=== PATIENT | female | born 1935 | race Caucasian/White ===

== ENCOUNTER → 2023-07-24 07:35 | Outpatient (REF) | payer OTHER, SELFPAY | LOC: RAD 07:35 | PROVIDERS: ATTENDING PHYSICIAN Nuclear Medicine Nuclear Cardiology; FAMILY PHYSICIAN Family Medicine | DX: I77.9 Disorder of arteries and arterioles, unspecified (principal) | CPT/HCPCS: 93880 ==

== ENCOUNTER → 2023-07-27 15:32 | Outpatient (REF) | payer OTHER, SELFPAY | LOC: PAVMRI 15:32 | PROVIDERS: ATTENDING PHYSICIAN Physical Medicine & Rehabilitation; FAMILY PHYSICIAN Family Medicine | DX: M25.511 Pain in right shoulder (principal) | CPT/HCPCS: 73221 ==

== ENCOUNTER 2023-09-10 11:58 | Emergency (ER) | payer OTHER, SELFPAY ==
[2023-09-10 12:03] VITALS: BP 129/82
--- NOTE | 2023-09-10 12:09 | ED.GENMED ---
History of Present Illness
General
Chief Complaint: Chest Pain
Source: patient
Exam Limitations: none
Time Seen by Provider: 09/10/23 12:07
Nursing documentation reviewed up to this point in time: agreed with
Travel History
Have you had any contact with someone who has COVID-19?: No
Do you have any symptoms of coronavirus? Fever > 100 degrees, chills, cough, shortness of breath, sore throat, loss of taste or smell, muscle aches, or headache?: No
History of Present Illness
History of Present Illness:
88-year-old female with history of HLD, appendectomy, tonsillectomy presents stating she was awakened at 3 AM this morning with pain across her upper chest, she is not sure how long it lasted but states she laid there for a little while and then
finally drifted back to sleep. When she awakened the chest pain was gone and she has had none since. She denies any sweating, shortness of breath, nausea or weakness.
Past History
Past History
ED Past Medical History: Hypercholesterolemia and Other (Osteoporosis with Chronic right upper back and neck problems which Dr. Millan has told her is from compression fractures.)
ED Past Surgical History: Appendectomy and Tonsilectomy
Social History
Tobacco: Non-smoker
Personal:
Living: with family
Family History
Family History: Other (Noncontributory)
Review of Systems
Review of Systems
Allergies reviewed?: Yes
All Other Systems: ROS reviewed and negative except as documented in HPI and ROS
Constitutional: Denies fever or fatigue
Respiratory: Denies trouble breathing
Cardiac: Reports chest pain; Denies diaphoresis, palpitations or syncope
ABD/GI: Denies abdominal pain, nausea, vomiting, diarrhea, constipated or anorexia
: Denies dysuria, frequency or difficulty voiding
Musculoskeletal: Reports no symptoms
Skin: Reports no symptoms
Neurological: Reports no symptoms
Phy Exam
Physical Exam
Physical Exam:
GENERAL: No acute distress. A&Ox3.
CONSTITUTIONAL: Afebrile.
EYES: ClearL, conjunctivae normal
ENMT: moist mucus membranes, Pharynx nl
RESPIRATORY: Regular respirations, nonlabored, lungs clear.
CARDIOVASCULAR: Regular rate and rhythm, no murmurs, no rubs.
GI: Soft, nontender, normal BS
MUSCULOSKELETAL: Moves with ease. Well perfused.
SKIN: Warm, dry, pink
PSYCH: Normal mood and affect. Well kept, interactive and appropriate
NEUROLOGIC: Awake, alert and oriented. No focal neurological deficits
Scores
Heart Score for Chest Pain Patients
STEMI patient?: Not applicable
Course
Orders/Labs/Results
Orders:
Orders
09/10/23 12:02
Electrocardiogram (*1) Urgent
Reason for Study: Chest Pain
EKG- Treatment ONCE
09/10/23 12:18
CR Chest - 2 Views Urgent
Comment:
Reason For Exam: Chest pain
09/10/23 12:24
Complete Blood Count/With Diff Urgent
Comprehensive Metabolic Panel Urgent
Troponin I Urgent
09/10/23 14:58
CT Chest With Iv Contrast Urgent
Comment:
Reason For Exam: chest pain, radfiology reports a mass
Abnormal Lab Results
09/10/23
12:24
Absolute Monos (auto) 0.7 H 10^3/uL
(0.1-0.6)
Monocytes % 9.4 H %
(1.7-9.3)
Sodium 133 L mmol/L
(135-145)
Glucose 102 H mg/dl
(70-99)
09/10/23 12:24
09/10/23 12:24
Vital Signs
Initial and Last Documented VS:
Initial Vital Signs
Temp Pulse Resp BP Pulse Ox
97.6 F 107 18 129/82 98
09/10/23 12:03 09/10/23 12:03 09/10/23 12:03 09/10/23 12:03 09/10/23 12:03
Last Documented Vital Signs
Temp Pulse Resp BP Pulse Ox
97.6 F 92 18 123/72 98
09/10/23 12:03 09/10/23 16:02 09/10/23 16:02 09/10/23 16:02 09/10/23 16:02
MDM/Problems Addressed
Differential Diagnosis Includes:
OK, angina
MDM/Problems Addressed:
88-year-old female with history of HLD, appendectomy, tonsillectomy presents stating she was awakened at 3 AM this morning with pain across her upper chest, she is not sure how long it lasted but states she laid there for a little while and then
finally drifted back to sleep. When she awakened the chest pain was gone and she has had none since. She denies any sweating, shortness of breath, nausea or weakness.
EKG: NSR, RBBB
09/10/2023 1346 PM
CBC normal
CMP normal
CXR unremarkable
No CP since arrival
Referred to the [facility] cardiac hotline for f/u
Received call from Radiology the patient has a mass in her chest and he recommends a CT scan
09/10/2023 1655 PM
IMPRESSION:
1. � 4.5 cm RIGHT LOWER LOBE LUNG CANCER.
2. � Small solid subcentimeter pulmonary nodules in the lower lobes of both lungs suspicious for pulmonary metastases. Infectious or inflammatory pulmonary nodules are an alternative diagnostic possibility.
3. � Mildly enlarged right hilar lymph nodes suspicious for corine metastatic disease.
4. � Moderate amount of subpleural scarring in both lung apices.
5. � Mild paraseptal emphysema in the upper lobes.
6. � Severe calcific atherosclerotic plaque in the coronary arteries and aorta.
7. � Multilevel vertebral body endplate osteoporotic insufficiency fractures in the thoracic and lumbar spine.
8. � Multiple small thyroid nodules.
Copy of report given to pt. with daughter and son in room. All questions answered.
Referred to Oncology.
*Critical Care Note
Total Time (30-74mins, 75-104mins- exclusive of procedures): Not Applicable
ED Attending Note
-
Portions of this chart may have been created with voice recognition software.� Occasional wrong word or��sound alike� substitutions may have occurred due to the inherent limitations of voice recognition software.
Discharge Plan
Departure
Patient Disposition: Home (Routine Discharge)
Date of Disposition: 09/10/23
Time of Disposition: 16:57
Patient with high blood pressure during this ER visit?: No
Condition: Good
Discharge Problem:
Atypical chest pain, Lung cancer
Instructions: Lung Cancer (DC), Chest Pain DCA Follow Up
Prescriptions:
No Action
multivitamin [Daily Multiple] 1 EACH tablet
1 ea PO DAILY
alendronate 70 MG tablet
70 mg PO WEEKLY
aspirin 81 MG tablet,delayed release (DR/EC)
81 mg PO DAILY
tramadol 50 MG tablet
50 mg PO PRN PRN (Reason: pain)
lorazepam 0.5 MG tablet
0.5 mg PO BIDPRN PRN (Reason: anxiety)
cholecalciferol (vitamin D3) [Vitamin D3] 1,000 UNIT capsule
1,000 unit PO DAILY
Referrals:
Hema Hernandez DO [Active] - Keep scheduled appt
Joi Ayala MD [Active] - Call in 1-3 days for appt
Joyce Huntley MD [Family Provider] -
Activity Restrictions/Additional Instructions:
As we discussed, there is no sign of a heart attack in your workup here today.
Someone from your cardiology group will contact you within the next 2 days for follow up appointment for a more thorough cardiac evaluation.
Your CT scan shows
Interventions
Interventions:
*Risk Screen - Suicide Last Done: 09/10/23 12:21
*General Assessment Last Done: 09/10/23 12:21
*Neglect/Abuse Screening Last Done: 09/10/23 12:21
ED- Fall Risk Assessment Last Done: 09/10/23 12:21
*ED COVID-19 Vaccine History Last Done: 09/10/23 12:21
*Nursing Disposition Last Done: 09/10/23 14:29
ED- Cardiac Assessment Last Done: 09/10/23 12:21
[2023-09-10 12:42] LABS: % Basophils 0.6 % (0-2); % Eosinophils 0.1 % (0-6); % Immature Granulocytes 0.5 % (0-0.5); % Lymphocytes 21.4 % (20.5-51.1); % Monocytes 9.4 % (1.7-9.3); Absolute Basophils 0.1 10^3/uL (0-0.2); Absolute Lymphocytes 1.7 10^3/uL (1.2-3.4); Absolute Monocytes 0.7 10^3/uL (0.1-0.6); Absolute Neutrophils 5.4 10^3/uL (1.4-6.5); Hematocrit 45.7 % (37.0-47.0); Hemoglobin 15.5 g/dL (12.0-16.0); Mean Corp Hgb Conc. 33.9 g/dL (33.0-37.0); Mean Corpuscular Hgb 29.2 pg (27.0-31.0); Mean Corpuscular Volume 86.2 fL (81.0-99.0); Mean Platelet Volume 9.6 fL (7.4-10.4); Nucleated Red Blood Cells % 0 %; Platelet Count 274 10^3/uL (130-400); Red Cell Dist. Width 14.3 % (11.5-14.5); White Blood Cell Count 7.9 10^3/uL (4.8-10.8)
[2023-09-10 12:50] LABS: ALT (SGPT) 13 U/L (0-35); AST (SGOT) 26 U/L (14-36); Albumin 4.1 g/dl (3.5-5.0); Alkaline Phosphatase 86 U/L (38-126); Blood Urea Nitrogen 14 mg/dl (7-17); Calcium 9.3 mg/dl (8.4-10.2); Carbon Dioxide 29 mmol/L (22-30); Chloride 101 mmol/L (98-107); Glucose 102 mg/dl (70-99); Potassium 4.2 mmol/L (3.5-5.1); Sodium 133 mmol/L (135-145); Total Bilirubin 0.5 mg/dl (0.2-1.3); Total Protein 7.2 g/dl (6.3-8.2); eGFR > 60.00
[2023-09-10 13:02] LABS: Troponin I < 0.012 ng/ml
[2023-09-10 13:34] VITALS: BP 123/71
[2023-09-10 14:28] VITALS: BP 125/74
[2023-09-10 16:02] VITALS: BP 123/72
[2023-09-10 17:47] VITALS: BP 118/71
== END 2023-09-10 17:48 | disposition home or self-care (01) ==
LOC: EMR 11:58
PROVIDERS: Registered Nurse; EMERGENCY PHYSICIAN Student in an Organized Health Care Education/Training Program; FAMILY PHYSICIAN Family Medicine
DX: R07.89 Other chest pain (principal); C34.31 Malignant neoplasm of lower lobe, right bronchus or lung; E78.00 Pure hypercholesterolemia, unspecified
CPT/HCPCS: 99285; 71046; 71260; 80053; 84484; 85025; 93005; Q9967

== ENCOUNTER → 2023-09-19 12:58 | Outpatient (REF) | payer OTHER, SELFPAY | LOC: DHCBS HW 12:58 | PROVIDERS: ATTENDING PHYSICIAN Nuclear Medicine Nuclear Cardiology; FAMILY PHYSICIAN Family Medicine | DX: I45.10 Unspecified right bundle-branch block (principal); I34.0 Nonrheumatic mitral (valve) insufficiency | CPT/HCPCS: 93306 ==

== ENCOUNTER → 2023-10-04 10:11 | Outpatient (REF) | payer OTHER, SELFPAY | LOC: PET 10:11 | PROVIDERS: ATTENDING PHYSICIAN Internal Medicine Hematology & Oncology | DX: C34.31 Malignant neoplasm of lower lobe, right bronchus or lung (principal) | CPT/HCPCS: 78815; A9552 ==

== ENCOUNTER 2023-10-10 06:20 | Day surgery (SDC) | payer OTHER, SELFPAY ==
[2023-10-04 12:36] VITALS: BMI 17.8
[2023-10-04 13:07] LABS: Hematocrit 46.7 % (37.0-47.0); Hemoglobin 15.4 g/dL (12.0-16.0); Mean Corpuscular Hgb 29.2 pg (27.0-31.0); Mean Corpuscular Volume 88.6 fL (81.0-99.0); Mean Platelet Volume 10.3 fL (7.4-10.4); Platelet Count 268 10^3/uL (130-400); Red Blood Cell Count 5.27 10^6/uL (4.20-5.40); Red Cell Dist. Width 14.2 % (11.5-14.5); White Blood Cell Count 7.6 10^3/uL (4.8-10.8)
[2023-10-04 13:17] LABS: INR 0.95; PT 12.7 Sec (11.4-14.6)
[2023-10-04 13:18] LABS: APTT 33.2 Sec (23.4-35.0)
[2023-10-04 13:27] LABS: Blood Urea Nitrogen 13 mg/dl (7-17); Carbon Dioxide 27 mmol/L (22-30); Chloride 96 mmol/L (98-107); Estimated Creatinine Clearance 36 ml/min; Glucose 157 mg/dl (70-99); Potassium 4.3 mmol/L (3.5-5.1); Sodium 131 mmol/L (135-145); eGFR > 60.00
[2023-10-10] VITALS (13 sets, daily range): BP systolic 90–122; BP diastolic 7–79; BMI 16.4
== END 2023-10-10 14:51 | disposition home or self-care (01) ==
LOC: SDS 06:20
PROVIDERS: ATTENDING PHYSICIAN Internal Medicine Critical Care Medicine; FAMILY PHYSICIAN Family Medicine; OTHER PHYSICIAN Nuclear Medicine Nuclear Cardiology
DX: C34.31 Malignant neoplasm of lower lobe, right bronchus or lung (principal); R93.89 Abnormal findings on diagnostic imaging of other specified body structures; J98.4 Other disorders of lung; J43.9 Emphysema, unspecified
CPT/HCPCS: 31629; 31628; 31627; 31624; 31623; 88172; 88173; 88305; 36415; 71045; 76000; 80048; 81459; 85027; 85610; 85730; 87015; 87070; 87102; 87116; 87205; 88112; 88177; 88333; 88334; 94640; C1887

== ENCOUNTER → 2023-10-12 14:20 | Outpatient (REF) | payer OTHER, SELFPAY | LOC: PAVMRI 14:20 | PROVIDERS: ATTENDING PHYSICIAN Internal Medicine Hematology & Oncology; FAMILY PHYSICIAN Family Medicine | DX: C34.31 Malignant neoplasm of lower lobe, right bronchus or lung (principal) | CPT/HCPCS: 70553 ==

== ENCOUNTER → 2023-10-30 10:20 | Outpatient (REF) | payer OTHER, SELFPAY ==
[2023-10-30 10:39] VITALS: BP 134/90; BP_SYST 98
[2023-10-30] MEDS: VANCOCIN 200 IV (10:44)
[2023-10-30 12:25] VITALS: BP 145/83; BP_SYST 96
== END ==
LOC: RADI 10:20
PROVIDERS: ATTENDING PHYSICIAN Internal Medicine Hematology & Oncology
DX: C34.31 Malignant neoplasm of lower lobe, right bronchus or lung (principal)
CPT/HCPCS: 36561; 76937; 77001; 99152; 99153; C1788

== ENCOUNTER → 2024-01-22 12:24 | Outpatient (REF) | payer OTHER, SELFPAY | LOC: HWRAD 12:24 | PROVIDERS: ATTENDING PHYSICIAN Internal Medicine Hematology & Oncology; FAMILY PHYSICIAN Family Medicine | DX: C34.31 Malignant neoplasm of lower lobe, right bronchus or lung (principal) | CPT/HCPCS: 71260; Q9967 ==

== ENCOUNTER → 2024-03-26 13:02 | Outpatient (REF) | payer OTHER, SELFPAY | LOC: HWRCS 13:02 | PROVIDERS: ATTENDING PHYSICIAN Nuclear Medicine Nuclear Cardiology; FAMILY PHYSICIAN Family Medicine | DX: I45.10 Unspecified right bundle-branch block (principal); R94.31 Abnormal electrocardiogram [ECG] [EKG]; I34.0 Nonrheumatic mitral (valve) insufficiency | CPT/HCPCS: 93306 ==

== ENCOUNTER 2024-04-04 19:42 | Emergency (ER) | payer OTHER, SELFPAY ==
[2024-04-04 19:43] VITALS: BMI 17.7
[2024-04-04 19:59] VITALS: BP 152/95
[2024-04-04 23:04] VITALS: BP 133/92
[2024-04-04 23:10] LABS: % Basophils 0.5 % (0-2); % Eosinophils 0.1 % (0-6); % Immature Granulocytes 0.4 % (0-0.5); % Lymphocytes 8.7 % (20.5-51.1); % Monocytes 10.4 % (1.7-9.3); % Neutrophils 79.9 % (42.2-75.2); Absolute Lymphocytes 0.6 10^3/uL (1.2-3.4); Absolute Monocytes 0.8 10^3/uL (0.1-0.6); Absolute Neutrophils 5.8 10^3/uL (1.4-6.5); Hematocrit 37.4 % (37.0-47.0); Hemoglobin 12.8 g/dL (12.0-16.0); Mean Corp Hgb Conc. 34.2 g/dL (33.0-37.0); Mean Corpuscular Hgb 28.5 pg (27.0-31.0); Mean Corpuscular Volume 83.3 fL (81.0-99.0); Nucleated Red Blood Cells % 0 %; Platelet Count 225 10^3/uL (130-400); Red Blood Cell Count 4.49 10^6/uL (4.20-5.40); Red Cell Dist. Width 12.7 % (11.5-14.5); White Blood Cell Count 7.3 10^3/uL (4.8-10.8)
[2024-04-04] MEDS: DILAUDID 0.25 MG IV (23:10)
--- NOTE | 2024-04-04 23:16 | ED.GENMED ---
History of Present Illness
<Lucy Black PA-C - Last Filed: 04/08/24 08:03>
General
Chief Complaint: Fall
Source: patient
Exam Limitations: none
Time Seen by Provider: 04/04/24 22:18
Nursing documentation reviewed up to this point in time: agreed with
History of Present Illness
History of Present Illness:
88 y/o F with
h/o lung cancer s/p chemotherapy and now on immunetherapy q2 weeks
not known to be mets to spine
has had some compression fx previously
mechanical fall onto knees earlier today. was able to be helped back up. walked and was helped into the vehicle and back home
took a tramadol but then couldn't get out of bed, having positional back pain, worse with movement and breathing. she has not had any leg weakness/numbness, shortness of breath, chest pain, vomiting, headache head injury
she is not anticoagulated
never landed directly onto her back
no knee pain/hip pain
no head strike
Past History
<FRANCISCO J Marcial Last Filed: 04/08/24 08:03>
Past History
ED Past Medical History: Hypercholesterolemia and Other (Osteoporosis with Chronic right upper back and neck problems which Dr. Millan has told her is from compression fractures.)
ED Past Surgical History: Appendectomy and Tonsilectomy
Social History
Tobacco: Non-smoker
Personal:
Living: with family
Family History
Family History: Other (Noncontributory)
Review of Systems
<FRANCISCO J Marcial Last Filed: 04/08/24 08:03>
Review of Systems
Allergies reviewed?: Yes
All Other Systems: Not applicable
Phy Exam
<FRANCISCO J Marcial Last Filed: 04/08/24 08:03>
Physical Exam
Physical Exam:
GENERAL: Alert , in no apparent distress, very thin
HEAD: NCAT
NECK: no midline tenderness, active ROM intact, no paraspinal muscle tenderness;
EYE: pupils equal and reactive, EOMs intact.
ENT: o/p clr, mmm. no hemotympanum
CARDIAC: Regular rate and rhythm, no edema
LUNGS: crackles R base, no acute respiratory distress, no wheezes/rhonchi
ABDOMEN: Soft, without focal tenderness, no r/g, no cvat
NEUROLOGICAL: Alert and oriented, no focal neuro deficits, CN intact, 5/5 strength, sensation intact
SKIN: Warm and dry,
back: significant kyphosis; tenderness midline and laterally around t8-t12 kathleen
pain with deep breathing
MUSCULOSKELETAL: No edema, well perfused.
no hip tendenress, full nkee rom, no swelling
PSYCH: Normal and appropriate interaction.
Course
<Lucy Black PA-C - Last Filed: 04/08/24 08:03>
Orders/Labs/Results
Orders:
Orders
04/04/24 20:02
EKG [Electrocardiogram (*1)] Urgent
Reason for Study: Tachycardia
EKG- Treatment ONCE
04/04/24 22:41
HYDROmorphone [Dilaudid] 0.25 mg IV NOW STA
04/04/24 22:44
CT Chest W/o Iv Contrast Urgent
Comment:
Reason For Exam: fall, severe mid bakcpain/pleuritic pain
04/04/24 22:57
Complete Blood Count/With Diff Urgent
Comprehensive Metabolic Panel Urgent
PTT Urgent
Prothrombin Time Urgent
04/05/24 00:49
Cefdinir [Omnicef] 300 mg PO NOW STA
Doxycycline [Vibramycin] 100 mg PO NOW STA
Abnormal Lab Results
04/04/24
22:57
Absolute Lymphs (auto) 0.6 L 10^3/uL
(1.2-3.4)
Absolute Monos (auto) 0.8 H 10^3/uL
(0.1-0.6)
Neutrophils % 79.9 H %
(42.2-75.2)
Lymphocytes % 8.7 L %
(20.5-51.1)
Monocytes % 10.4 H %
(1.7-9.3)
Sodium 134 L mmol/L
(135-145)
Chloride 97 L mmol/L
(98-107)
Creatinine 0.5 L mg/dL
(0.6-1.0)
Glucose 113 H mg/dl
(70-99)
04/04/24 22:57
04/04/24 22:57
Vital Signs
Initial and Last Documented VS:
Initial Vital Signs
Temp Pulse Resp BP Pulse Ox
98.5 F 134 18 152/95 97
04/04/24 19:59 04/04/24 19:59 04/04/24 19:59 04/04/24 19:59 04/04/24 19:59
Last Documented Vital Signs
Temp Pulse Resp BP Pulse Ox
98.5 F 134 18 139/97 93
04/04/24 19:59 04/04/24 19:59 04/04/24 19:59 04/05/24 01:02 04/04/24 23:42
<Martin Diaz PA-C - Last Filed: 04/05/24 01:14>
Orders/Labs/Results
Orders:
Orders
04/04/24 20:02
EKG [Electrocardiogram (*1)] Urgent
Reason for Study: Tachycardia
EKG- Treatment ONCE
04/04/24 22:41
HYDROmorphone [Dilaudid] 0.25 mg IV NOW STA
04/04/24 22:44
CT Chest W/o Iv Contrast Urgent
Comment:
Reason For Exam: fall, severe mid bakcpain/pleuritic pain
04/04/24 22:57
Complete Blood Count/With Diff Urgent
Comprehensive Metabolic Panel Urgent
PTT Urgent
Prothrombin Time Urgent
04/05/24 00:49
Cefdinir [Omnicef] 300 mg PO NOW STA
Doxycycline [Vibramycin] 100 mg PO NOW STA
Abnormal Lab Results
04/04/24
22:57
Absolute Lymphs (auto) 0.6 L 10^3/uL
(1.2-3.4)
Absolute Monos (auto) 0.8 H 10^3/uL
(0.1-0.6)
Neutrophils % 79.9 H %
(42.2-75.2)
Lymphocytes % 8.7 L %
(20.5-51.1)
Monocytes % 10.4 H %
(1.7-9.3)
Sodium 134 L mmol/L
(135-145)
Chloride 97 L mmol/L
(98-107)
Creatinine 0.5 L mg/dL
(0.6-1.0)
Glucose 113 H mg/dl
(70-99)
04/04/24 22:57
04/04/24 22:57
Vital Signs
Initial and Last Documented VS:
Initial Vital Signs
Temp Pulse Resp BP Pulse Ox
98.5 F 134 18 152/95 97
04/04/24 19:59 04/04/24 19:59 04/04/24 19:59 04/04/24 19:59 04/04/24 19:59
Last Documented Vital Signs
Temp Pulse Resp BP Pulse Ox
98.5 F 134 18 139/97 93
04/04/24 19:59 04/04/24 19:59 04/04/24 19:59 04/05/24 01:02 04/04/24 23:42
<Lucy Black PA-C - Last Filed: 04/08/24 08:03>
MDM/Problems Addressed
Differential Diagnosis Includes:
compression fracture, contusion, strain, rib fx
MDM/Problems Addressed:
88 y/o F with h/o lung ca
here wih mid back pain after fall onto her knees
she was intially able to get up and walk but several hours later had severe pain and was unable to move or get up and 911 was called
she is not anticoagulated
no neuro complaints
pain is worse with breathing and movement
has no known mets to spine on imaging that i have reviewed
tenderness and pain to mid to lower rhotacic back
no lumbar tendneres
no cva tenderness
pain with breathing
d/w dr. jimenez, recommended ct chest
signed out to nirav pending ct.
<Martin Diaz PA-C - Last Filed: 04/05/24 01:14>
*Critical Care Note
Total Time (30-74mins, 75-104mins- exclusive of procedures): Not Applicable
<Martin Diaz PA-C - Last Filed: 04/05/24 01:14>
Update Note
Update Note:
Assumed care of patient from Lucy Black PA-C at shift change 0000. Pending CT of the chest report, plan for discharge home with pain control
CT report reviewed, no evidence for thoracic spine fracture. CT does reveal multifocal bilateral infiltrates. The patient has no fever or coughing but does report mild shortness of breath. Reviewed prior CT report, no similar findings
particularly in the left lung. Will treat this as a developing pneumonia despite the patient's lack of strong symptoms and lack of leukocytosis. This certainly could be viral or inflammatory. Will treat with cefdinir and doxycycline, recommend
repeat chest imaging in 6 weeks to assess for resolution
ED Attending Note
<Lucy Black PA-C - Last Filed: 04/08/24 08:03>
-
Portions of this chart may have been created with voice recognition software.� Occasional wrong word or��sound alike� substitutions may have occurred due to the inherent limitations of voice recognition software.
Discharge Plan
Departure
Patient Disposition: Home (Routine Discharge)
Date of Disposition: 04/05/24
Time of Disposition: 00:50
Patient with high blood pressure during this ER visit?: Yes
Discharge Problem:
Strain of thoracic back region, Bilateral pulmonary infiltrates
Instructions: Back Pain
Prescriptions:
New
cefdinir 300 mg capsule
300 mg PO BID 5 Days Qty: 10 0RF
doxycycline hyclate 100 mg capsule
100 mg PO BID 5 Days Qty: 10 0RF
No Action
alendronate 70 MG tablet
70 mg PO WEEKLY
tramadol 50 MG tablet
50 mg PO PRN PRN (Reason: pain)
lorazepam 0.5 MG tablet
0.5 mg PO BIDPRN PRN (Reason: anxiety)
atorvastatin 80 mg Tablet
80 mg PO DAILY
ibuprofen 400 mg Tablet
400 mg PO Q6H PRN (Reason: pain)
diltiazem HCl [Cartia XT] 120 mg Capsule,Extended Release 24hr
120 mg PO DAILY
gabapentin 100 mg Capsule
200 mg PO TID
Low-Dose Aspirin 81 mg Tablet
81 mg PO DAILY
Referrals:
Celia Gil PA-C [Family Provider] -
Activity Restrictions/Additional Instructions:
Please have your primary doctor or oncologist obtain a repeat CAT scan of your chest in 6 weeks to assess for resolution of the abnormality seen today
Take your prescribed morphine as well as occasional doses of Tylenol and ibuprofen to alleviate your back pain
Interventions
Interventions:
*Risk Screen - Suicide Last Done: 04/04/24 19:59
*General Assessment Last Done: 04/04/24 19:59
*Neglect/Abuse Screening Last Done: 04/04/24 19:59
*ED COVID-19 Vaccine History Last Done: 04/04/24 19:59
*Nursing Disposition Last Done: 04/05/24 01:44
ED-Musculoskeletal Assessment Last Done: 04/04/24 23:54
ED- Neurological Assessment Last Done: 04/04/24 23:54
ED-Skin Assessment Last Done: 04/04/24 23:55
Discharge Date and Time
Discharge Date/Time: 04/05/24 01:44
Print Language: BERMUDIAN
[2024-04-04 23:20] LABS: INR 1.02; PT 13.2 Sec (11.4-14.6)
[2024-04-04 23:30] LABS: ALT (SGPT) 13 U/L (0-35); AST (SGOT) 24 U/L (14-36); Albumin 3.7 g/dl (3.5-5.0); Alkaline Phosphatase 90 U/L (38-126); Blood Urea Nitrogen 17 mg/dl (7-17); Calcium 9.3 mg/dl (8.4-10.2); Carbon Dioxide 29 mmol/L (22-30); Chloride 97 mmol/L (98-107); Glucose 113 mg/dl (70-99); Potassium 4.1 mmol/L (3.5-5.1); Sodium 134 mmol/L (135-145); Total Bilirubin 0.3 mg/dl (0.2-1.3); Total Protein 6.5 g/dl (6.3-8.2); eGFR > 60.00
[2024-04-05 01:02] VITALS: BP 139/97
[2024-04-05] MEDS: OMNICEF 300 MG PO (01:02)
[2024-04-05] MEDS: VIBRAMYCIN 100 MG PO (01:02)
== END 2024-04-05 01:44 | disposition home or self-care (01) ==
LOC: EMR 19:42
PROVIDERS: Physician Assistant; EMERGENCY PHYSICIAN Emergency Medicine; FAMILY PHYSICIAN Physician Assistant Medical
DX: S29.012A Strain of muscle and tendon of back wall of thorax, initial encounter (principal); R91.8 Other nonspecific abnormal finding of lung field; W19.XXXA Unspecified fall, initial encounter; E78.00 Pure hypercholesterolemia, unspecified; M81.0 Age-related osteoporosis without current pathological fracture; Z85.118 Personal history of other malignant neoplasm of bronchus and lung; Z90.49 Acquired absence of other specified parts of digestive tract
CPT/HCPCS: 99284; 96374; 71250; 80053; 85025; 85610; 85730; 93005

== ENCOUNTER 2024-04-14 19:47 | Emergency (ER) | payer OTHER, SELFPAY ==
[2024-04-14 19:52] VITALS: BP 118/71
[2024-04-14 20:25] LABS: % Basophils 0.5 % (0-2); % Eosinophils 0.3 % (0-6); % Immature Granulocytes 0.6 % (0-0.5); % Monocytes 8.6 % (1.7-9.3); Absolute Lymphocytes 0.8 10^3/uL (1.2-3.4); Absolute Monocytes 0.5 10^3/uL (0.1-0.6); Absolute Neutrophils 4.9 10^3/uL (1.4-6.5); Hematocrit 36.3 % (37.0-47.0); Hemoglobin 12.2 g/dL (12.0-16.0); Mean Corp Hgb Conc. 33.6 g/dL (33.0-37.0); Mean Corpuscular Hgb 28.1 pg (27.0-31.0); Mean Corpuscular Volume 83.6 fL (81.0-99.0); Mean Platelet Volume 9.2 fL (7.4-10.4); Nucleated Red Blood Cells % 0 %; Platelet Count 211 10^3/uL (130-400); Red Blood Cell Count 4.34 10^6/uL (4.20-5.40); Red Cell Dist. Width 13.1 % (11.5-14.5); White Blood Cell Count 6.3 10^3/uL (4.8-10.8)
[2024-04-14 20:49] LABS: Blood Urea Nitrogen 18 mg/dl (7-17); Calcium 8.6 mg/dl (8.4-10.2); Carbon Dioxide 27 mmol/L (22-30); Chloride 100 mmol/L (98-107); Glucose 154 mg/dl (70-99); Sodium 137 mmol/L (135-145); eGFR > 60.00
[2024-04-14 20:50] LABS: Troponin I < 0.012 ng/ml
[2024-04-14 22:21] VITALS: BP 138/86
[2024-04-14 23:00] VITALS: BP 126/88
[2024-04-14 23:42] VITALS: BP 119/88; BP 144/92; PULSE 107; PULSE 82
[2024-04-14] MEDS: NSS 500 IV (23:51)
--- NOTE | 2024-04-14 23:57 | ED.GENMED ---
History of Present Illness
General
Chief Complaint: Fainting Sensation
Source: patient
Exam Limitations: none
Time Seen by Provider: 04/14/24 23:11
Nursing documentation reviewed up to this point in time: agreed with
History of Present Illness
History of Present Illness:
PT IS A 88 Y/O F
with h/o lung cancer on immunotherapy
had a fall a few weeks ago and since has had back pain
was seen here, had ct which showed no fractures but pt had evolving pneu,onia which was treated with antibiotics
she has not had any new symptoms from that
but with the back pain she has had, she has had trouble walking around/moving and hasn't been eating/drinking well
today she took a dose of morphine ER 15 mg and skelaxin 800 mg together for the first time
about an hour later she was feeding the dog and when she stood up she felt woozy; her got her into a chair but pt fully lost consciousness; they called 911 and by time they picked her up, she was awake but still drowsy but by the time she
got here she felt ok
she doesn't really remember the incident; she remembers feeding the dog
denies preceding chest pain, headache, focal weakness, vomiting, nausea, urinary sypmtoms
Past History
Past History
ED Past Medical History: Hypercholesterolemia and Other (Osteoporosis with Chronic right upper back and neck problems which Dr. Millan has told her is from compression fractures.)
ED Past Surgical History: Appendectomy and Tonsilectomy
Social History
Tobacco: Non-smoker
Personal:
Living: with family
Family History
Family History: Other (Noncontributory)
Review of Systems
Review of Systems
Allergies reviewed?: Yes
All Other Systems: Not applicable
Phy Exam
Physical Exam
Physical Exam:
GENERAL: Alert , in no apparent distress
frail, thin
EYE: pupils equal and reactive
NECK: Supple
ENT: o/p clr, dry mouth
CARDIAC: Regular rate and rhythm .no edema
LUNGS: Clear breath sounds bilaterally, no acute respiratory distress, no wheezes/rales/rhonchi
ABDOMEN: Soft, without focal tenderness, no r/g, no cvat, normal bowel sounds
NEUROLOGICAL: Alert and oriented, no focal neuro deficits
SKIN: Warm and dry, skin intact.
MUSCULOSKELETAL: No edema, well perfused. neg gian's sign
PSYCH: Normal and appropriate interaction.
Course
Orders/Labs/Results
Orders:
Orders
04/14/24 20:00
ECG [Electrocardiogram (*1)] Urgent
Reason for Study: Syncope
EKG- Treatment ONCE
04/14/24 20:18
Basic Metabolic Panel Urgent
Complete Blood Count/With Diff Urgent
Troponin I Urgent
04/14/24 23:48
Potassium Urgent
0.9% Sodium Chloride 500 ml [Nss] 500 ml IV BOLUS
Abnormal Lab Results
04/14/24
20:18
Hct 36.3 L %
(37.0-47.0)
Absolute Lymphs (auto) 0.8 L 10^3/uL
(1.2-3.4)
Immature Gran % 0.6 H %
(0-0.5)
Neutrophils % 77.0 H %
(42.2-75.2)
Lymphocytes % 13.0 L %
(20.5-51.1)
BUN 18 H mg/dl
(7-17)
Glucose 154 H mg/dl
(70-99)
04/14/24 20:18
04/15/24 00:01
Vital Signs
Initial and Last Documented VS:
Initial Vital Signs
Temp Pulse Resp BP Pulse Ox
97.6 F 76 16 118/71 98
04/14/24 19:52 04/14/24 19:52 04/14/24 19:52 04/14/24 19:52 04/14/24 19:52
Last Documented Vital Signs
Temp Pulse Resp BP Pulse Ox
97.6 F 71 15 146/98 94
04/14/24 19:52 04/15/24 01:00 04/15/24 01:00 04/15/24 01:00 04/15/24 01:00
MDM/Problems Addressed
Differential Diagnosis Includes:
medication side effect, dysyrhthmia, orthostasis
MDM/Problems Addressed:
88-year-old female with a history of lung cancer on immunotherapy and with chronic pain after a fall 2 weeks ago presents for a syncopal event today. She bent down to you with her dog's food she got back up she felt lightheaded and woozy and her
sat her down but she did ultimately pass out for a brief moment or 2. He called 911 and she was given slightly out of it for them but not shaking. She ever since being here is awake and alert. Apparently patient recently was given a
prescription for OxyContin 15 mg and Skelaxin and she took them both for the first time together today. She had taken 1 OxyContin yesterday without much difficulty but had not taken with the Skelaxin until today. It was shortly after this that the
patient had the syncopal event. She is also not been eating and drinking as well. She recently had pneumonia and was treated with antibiotics. Patient is having chronic pain in her back which is why she was prescribed the pain medication. On
exam patient appears dehydrated and weak and frail. She did tilt positive with orthostatics dropping her blood pressure 30 systolic and her heart rate increasing 20 and she was symptomatic. Patient was given IV fluids. I appreciate her blood work
to show her BUN is slightly up but otherwise there were no significant findings. Her EKG does show a sinus rhythm with marked sinus arrhythmia and a pause which she has had before.
She has no changes there
After IV fluids she was reassessed and able to get up and walk to the bathroom with minimal assistance and use the walker. She did not feel lightheaded after the liter of fluid she was given. Patient was offered observation admission to watch for
telemonitoring but she opted to go home. Will instruct the family to only use half of the pain medication and did not use the MS Contin and the Skelaxin together.
*Critical Care Note
Total Time (30-74mins, 75-104mins- exclusive of procedures): Not Applicable
ED Attending Note
-
Portions of this chart may have been created with voice recognition software.� Occasional wrong word or��sound alike� substitutions may have occurred due to the inherent limitations of voice recognition software.
Discharge Plan
Departure
Patient Disposition: Home (Routine Discharge)
Date of Disposition: 04/15/24
Time of Disposition: 02:01
Patient with high blood pressure during this ER visit?: No
Condition: Fair
Covid-19: Not Applicable
Discharge Problem:
Orthostatic syncope, Drug side effects
Instructions: Syncope (Fainting) (DC)
Prescriptions:
No Action
alendronate 70 MG tablet
70 mg PO WEEKLY
tramadol 50 MG tablet
50 mg PO PRN PRN (Reason: pain)
lorazepam 0.5 MG tablet
0.5 mg PO BIDPRN PRN (Reason: anxiety)
atorvastatin 80 mg Tablet
80 mg PO DAILY
ibuprofen 400 mg Tablet
400 mg PO Q6H PRN (Reason: pain)
diltiazem HCl [Cartia XT] 120 mg Capsule,Extended Release 24hr
120 mg PO DAILY
gabapentin 100 mg Capsule
200 mg PO TID
Low-Dose Aspirin 81 mg Tablet
81 mg PO DAILY
cefdinir 300 mg capsule
300 mg PO BID 5 Days Qty: 10 0RF
doxycycline hyclate 100 mg capsule
100 mg PO BID 5 Days Qty: 10 0RF
Referrals:
Joyce Huntley MD [Family Provider] - Follow up in 2-3 days
Activity Restrictions/Additional Instructions:
YOU PROBABLY PASSED OUT FROM A COMBINATION OF STRONG PAIN MEDICATION AND BEING DEHYDRATED - MORPHINE CAN DROP YOUR BLOOD PRESSURE AND SO CAN BEING DEHYDRATED
MAKE SURE TO GET UP SLOWLY FROM SITTING OR LAYING TO AVOID PASSING OUT
STAY HYDRATED
FOLLOW UP WITH YOUR DOCTOR
AVOID THE MUSCLE RELAXANT FOR NOW
TRY THE MORPHINE IN HALF TO SEE IF THIS DOSE IS BETTER FOR YOU
RETURN FOR REPEATED PASSING OUT, CHEST PAIN, SHORTNESS OF BREAHT, ETC.
Interventions
Interventions:
*Risk Screen - Suicide Last Done: 04/14/24 22:44
*General Assessment Last Done: 04/14/24 22:44
*Neglect/Abuse Screening Last Done: 04/14/24 22:44
*Nursing Disposition Last Done: 04/15/24 02:15
ED- Cardiac Assessment Last Done: 04/14/24 22:44
ED- Neurological Assessment Last Done: 04/14/24 22:44
Discharge Date and Time
Discharge Date/Time: 04/15/24 02:16
Print Language: [email or web address]
[2024-04-15 00:02] VITALS: BP 142/88
[2024-04-15 00:17] LABS: Potassium 4.4 mmol/L (3.5-5.1)
[2024-04-15 01:00] VITALS: BP 146/98
== END 2024-04-15 02:16 | disposition home or self-care (01) ==
LOC: EMR 19:47
PROVIDERS: Physician Assistant; Student in an Organized Health Care Education/Training Program; EMERGENCY PHYSICIAN Emergency Medicine; FAMILY PHYSICIAN Family Medicine
DX: R55 Syncope and collapse (principal); T40.2X5A Adverse effect of other opioids, initial encounter; T42.8X5A Adverse effect of antiparkinsonism drugs and other central muscle-tone depressants, initial encounter
CPT/HCPCS: 99284; 96360; 80048; 84132; 84484; 85025; 93005

== ENCOUNTER → 2024-04-15 09:59 | Outpatient (REF) | payer OTHER, SELFPAY | LOC: HWRAD 09:59 | PROVIDERS: ATTENDING PHYSICIAN Nurse Practitioner Primary Care; FAMILY PHYSICIAN Family Medicine | DX: C34.31 Malignant neoplasm of lower lobe, right bronchus or lung (principal) | CPT/HCPCS: 71260; Q9967 ==

== ENCOUNTER → 2024-06-11 10:59 | Outpatient (REF) | payer OTHER, SELFPAY | LOC: PET 10:59 | PROVIDERS: ATTENDING PHYSICIAN Nurse Practitioner Adult Health | DX: C34.31 Malignant neoplasm of lower lobe, right bronchus or lung (principal) | CPT/HCPCS: 78815; A9552 ==

== ENCOUNTER → 2024-08-27 10:05 | Outpatient (REF) | payer OTHER, SELFPAY | LOC: RST 10:05 | PROVIDERS: ATTENDING PHYSICIAN Internal Medicine Geriatric Medicine | DX: R13.14 Dysphagia, pharyngoesophageal phase (principal) | CPT/HCPCS: 74230; 92611 ==

== ENCOUNTER → 2024-09-05 11:27 | Outpatient (REF) | payer MEDICARE, SELFPAY | LOC: RAD 11:27 | PROVIDERS: ATTENDING PHYSICIAN Nurse Practitioner Adult Health; FAMILY PHYSICIAN Internal Medicine Geriatric Medicine | DX: C34.31 Malignant neoplasm of lower lobe, right bronchus or lung (principal) | CPT/HCPCS: 71046 ==

== ENCOUNTER 2024-10-07 22:16 | Inpatient (IN) | payer MEDICARE, SELFPAY ==
[2024-10-07 17:51] VITALS: BP 139/92
[2024-10-07 18:00] VITALS: BP 118/80
--- NOTE | 2024-10-07 18:11 | ED.GENMED ---
History of Present Illness
General
Chief Complaint: Heart Rate Problem
Source: patient, family, ambulance crew and [facility] records
Exam Limitations: none
Time Seen by Provider: 10/07/24 18:02
Nursing documentation reviewed up to this point in time: agreed with
History of Present Illness
History of Present Illness:
89-year-old female with a past medical history of lung cancer reportedly in remission, COPD, chronic respiratory failure, atrial tachycardia (sees Dr. Hernandez for cardiology) presents to the emergency room from [facility]; presents via EMS but is
accompanied by her family. She was sent in for evaluation of tachycardia earlier today. Patient reports that she feels 'fine.' She says she did not want to go to the emergency room but they told her that she needed to go to the ER. According to
her daughter when they went to take patient for PT today they noted that she was very tachycardic in the 130s. When they rechecked her later in the day she remains tachycardic and per paperwork sent from [facility] they felt her rhythm was
irregular and so they referred her to the emergency room for assessment. Patient denies any chest pain. She says she has shortness of breath but this is a chronic issue she says. She denies any palpitations. She denies any other complaints. Her
daughter notes that she has had some increased oxygen requirement over the past few weeks�it was attributed to COPD and recent bout of pneumonia. Daughter also notes that patient has had swallowing issues and has had thickened liquids ordered for
her and does not like this; as a result patient has been taking less by mouth and daughter feels she may be mildly dehydrated. Daughter also notes the patient has had similar episodes of tachycardia in the past attributed to atrial tachycardia and
is on diltiazem.
Past History
Past History
ED Past Medical History: Hypercholesterolemia and Other (Osteoporosis with Chronic right upper back and neck problems which Dr. Millan has told her is from compression fractures.)
ED Past Surgical History: Appendectomy and Tonsilectomy
Social History
Tobacco: Non-smoker
Personal:
Living: with family
Family History
Family History: Other (Noncontributory)
Review of Systems
Review of Systems
All Other Systems: ROS reviewed and negative except as documented in HPI and ROS
Constitutional: Denies fever or chills
Respiratory: Reports trouble breathing (Chronic)
Cardiac: Denies chest pain or palpitations
ABD/GI: Denies abdominal pain, nausea or vomiting
: Denies flank pain
Musculoskeletal: Denies neck pain or back pain
Neurological: Denies headache
Phy Exam
Physical Exam
Physical Exam:
General: Awake, alert, oriented x3; no acute distress
Head: Normocephalic, atraumatic
Eyes: Conjunctiva normal
Throat: Airway intact, handling secretions
Neck: Trachea midline, no JVD
Lungs: Occasional wheeze but lungs otherwise clear, normal pulse ox on her typical home oxygen
Heart: Regular rate and rhythm with occasional ectopy, no murmurs, gallops, or rubs
Neuro: No gross deficits
Extremities: No edema in extremities, warm and well-perfused
Scores
Heart Failure Risk
Heart Failure Risk Score: Not Applicable
Heart Score for Chest Pain Patients
STEMI patient?: Not applicable
Withdrawal Assessment of Alcohol
Withdrawal Assessment Completed?: Not applicable
Course
Orders/Labs/Results
Orders:
Orders
10/07/24 17:47
EKG [Electrocardiogram (*1)] Urgent
Reason for Study: Tachycardia
EKG- Treatment ONCE
10/07/24 18:03
CT Chest PE Study Urgent
Comment:
Reason For Exam: sob, tachycardia, h/o lung ca
0.9% Sodium Chloride 500 ml [Nss] 500 ml IV BOLUS
10/07/24 18:24
Complete Blood Count/With Diff Urgent
Comprehensive Metabolic Panel Urgent
Free T4 Urgent
TSH Reflex To Free T4 Urgent
Abnormal Lab Results
10/07/24
18:24
RBC 3.96 L 10^6/uL
(4.20-5.40)
Hgb 11.6 L g/dL
(12.0-16.0)
Hct 34.3 L %
(37.0-47.0)
RDW 15.2 H %
(11.5-14.5)
Abs Immat Gran (auto) 0.2 H 10^3/uL
(0-0.05)
Absolute Neuts (auto) 7.9 H 10^3/uL
(1.4-6.5)
Absolute Lymphs (auto) 0.4 L 10^3/uL
(1.2-3.4)
Immature Gran % 1.8 H %
(0-0.5)
Neutrophils % 90.4 H %
(42.2-75.2)
Lymphocytes % 4.0 L %
(20.5-51.1)
Chloride 97 L mmol/L
(98-107)
Carbon Dioxide 37 H mmol/L
(22-30)
Creatinine 0.4 L mg/dL
(0.6-1.0)
Glucose 143 H mg/dl
(70-99)
AST 101 H U/L
(14-36)
ALT 88 H U/L
(0-35)
Alkaline Phosphatase 348 H U/L
(38-126)
Total Protein 6.0 L g/dl
(6.3-8.2)
Albumin 3.0 L g/dl
(3.5-5.0)
TSH (Reflex) 0.37 L uIU/ml
(0.47-4.68)
10/07/24 18:24
10/07/24 18:24
Vital Signs
Initial and Last Documented VS:
Initial Vital Signs
Pulse Resp Pulse Ox
89 19 98
10/07/24 17:48 10/07/24 17:48 10/07/24 17:48
Last Documented Vital Signs
Pulse Resp BP Pulse Ox
78 20 134/83 97
10/07/24 20:00 10/07/24 20:00 10/07/24 20:00 10/07/24 19:00
MDM/Problems Addressed
Differential Diagnosis Includes:
Atrial tachycardia, sinus tachycardia, atrial fibrillation/atrial flutter
MDM/Problems Addressed:
89-year-old female presents to the ER for evaluation after prolonged tachycardia today. She has been asymptomatic aside from chronic dyspnea which she feels is no worse than typical. Daughter does note that patient has had increased oxygen
requirement over the past 3 weeks attributed to recent bout of pneumonia. Otherwise has been doing well. Her heart rate has normalized here, currently in the 80s. Rest of vitals normal as above. Physical exam as above. EKG shows sinus rhythm
with occasional ectopy. Suspect this was likely an episode of her typical atrial tachycardia. Will plan to check screening labs, thyroid studies. She does have history of lung cancer, recent history of pneumonia and daughter notes increased
oxygen requirement over the past few weeks. Will check CT chest to rule out any residual pneumonia as well as to rule out PE as trigger for episode today. Will reassess after the above.
Labs reviewed: CBC shows stable anemia, CMP shows marginal elevation of transaminases but no other clinically significant abnormalities. CT chest shows no PE but does show persistent pneumonia. Patient's heart rate is currently in the 90s.
Respiratory rate in the 20s. Suspect likely this pneumonia is to account for her increased oxygen requirement over the past few weeks. She was already treated with outpatient course of antibiotics and given this we will plan to admit for IV
antibiotics. Case discussed with hospitalist.
Chronic conditions affecting care:
Atrial tachycardia
*Radiology
Radiology exam reviewed: radiology read reviewed
*Pulse Oximetry
Patient hypoxic: no (Acceptable pulse ox on her typical home oxygen)
*EKG
Interpreted by ED Provider?: Yes
Heart Rate: 103
Rate: tachycardiac
Rhythm: sinus and PAC's
Interval: normal interval
QRS Pattern: right bundle branch block (Incomplete)
Ischemia: non-specific ST changes
*Critical Care Note
Total Time (30-74mins, 75-104mins- exclusive of procedures): Not Applicable
Data Reviewed
Review of Other/Old Records Reveals: Labs and Records
Source: patient and records
Patient Management
Discussion with other providers: Hospitalist (Discussed with hospitalist)
Escalation/DeEscalation of care consider admission/obs:
Admission indicated
ED Attending Note
-
Portions of this chart may have been created with voice recognition software.� Occasional wrong word or��sound alike� substitutions may have occurred due to the inherent limitations of voice recognition software.
Discharge Plan
Departure
Prescriptions:
No Action
alendronate 70 MG tablet
70 mg PO WEEKLY
tramadol 50 MG tablet
50 mg PO PRN PRN (Reason: pain)
lorazepam 0.5 MG tablet
0.5 mg PO BIDPRN PRN (Reason: anxiety)
atorvastatin 80 mg Tablet
80 mg PO DAILY
ibuprofen 400 mg Tablet
400 mg PO Q6H PRN (Reason: pain)
diltiazem HCl [Cartia XT] 120 mg Capsule,Extended Release 24hr
120 mg PO DAILY
gabapentin 100 mg Capsule
200 mg PO TID
Low-Dose Aspirin 81 mg Tablet
81 mg PO DAILY
cefdinir 300 mg capsule
300 mg PO BID 5 Days Qty: 10 0RF
doxycycline hyclate 100 mg capsule
100 mg PO BID 5 Days Qty: 10 0RF
Referrals:
Kenny Burnham MD [Family Provider] -
Interventions
Interventions:
*Risk Screen - Suicide Last Done: 10/07/24 17:48
*General Assessment Last Done: 10/07/24 17:48
*Neglect/Abuse Screening Last Done: 10/07/24 17:48
*ED- Fall Risk Assessment Last Done: 10/07/24 17:48
*ED COVID-19 Vaccine History Last Done: 10/07/24 17:48
ED- Cardiac Assessment Last Done: 10/07/24 18:39
ED- Pulmonary Assessment Last Done: 10/07/24 18:39
Discharge Date and Time
Print Language: TURKISH
[2024-10-07] MEDS: NSS 500 IV (18:28)
[2024-10-07 18:33] LABS: % Basophils 0.1 % (0-2); % Immature Granulocytes 1.8 % (0-0.5); % Monocytes 3.7 % (1.7-9.3); % Neutrophils 90.4 % (42.2-75.2); Absolute Immature Granulocytes 0.2 10^3/uL (0-0.05); Absolute Lymphocytes 0.4 10^3/uL (1.2-3.4); Absolute Monocytes 0.3 10^3/uL (0.1-0.6); Absolute Neutrophils 7.9 10^3/uL (1.4-6.5); Hematocrit 34.3 % (37.0-47.0); Hemoglobin 11.6 g/dL (12.0-16.0); Mean Corp Hgb Conc. 33.8 g/dL (33.0-37.0); Mean Corpuscular Hgb 29.3 pg (27.0-31.0); Mean Corpuscular Volume 86.6 fL (81.0-99.0); Mean Platelet Volume 9.5 fL (7.4-10.4); Nucleated Red Blood Cells % 0 %; Platelet Count 228 10^3/uL (130-400); Red Blood Cell Count 3.96 10^6/uL (4.20-5.40); Red Cell Dist. Width 15.2 % (11.5-14.5); White Blood Cell Count 8.7 10^3/uL (4.8-10.8)
[2024-10-07 18:46] LABS: ALT (SGPT) 88 U/L (0-35); AST (SGOT) 101 U/L (14-36); Alkaline Phosphatase 348 U/L (38-126); Blood Urea Nitrogen 16 mg/dl (7-17); Calcium 8.7 mg/dl (8.4-10.2); Carbon Dioxide 37 mmol/L (22-30); Chloride 97 mmol/L (98-107); Glucose 143 mg/dl (70-99); Potassium 4.3 mmol/L (3.5-5.1); Sodium 138 mmol/L (135-145); Total Bilirubin 0.6 mg/dl (0.2-1.3); eGFR > 60.00
[2024-10-07 19:00] VITALS: BP 116/81
[2024-10-07 19:16] LABS: TSH Reflex To Free T4 0.37 uIU/ml (0.47-4.68)
[2024-10-07 19:45] LABS: Free T4 1.15 ng/dl (0.78-2.19)
[2024-10-07 20:00] VITALS: BP 134/83
[2024-10-07] MEDS: MAXIPIME 1000 MG IV (20:33)
[2024-10-07] MEDS: VANCOCIN 200 IV (20:45)
--- NOTE | 2024-10-07 21:45 | HPS.HSE ---
Addendum entered and electronically signed by Ravindra Zarco MD 10/07/24 23:22:
Correction:
IV CFP and PO Doxycycline .
No further IV vancomycin.
Original Note:
Family Physician
-
Family Physician: Kenny Burnham
Chief Complaint
-
HR 130s, more home O2 needs
History of Present Illness
HPI
89F Non smoker Res of [facility]
Lung CA in remission, home O2 depedet COPD, chr RF, HX Atrila tachycardia on dilatiazem
- was sent in for evaluation of tachycardia HR 130 pe family earlier but denied palpitation or lightheadedness
- has chronic SoB but increased O2 demean of home O2
- denied CP
- Daughter humphreyort s swallowing issues and has had thickened liquids ordered for her and does not like it so she ate less
Recent HX PNA s/p ABx 2 weks ago
Medical History
Past Medical History
Past Medical History: Reports Arrhythmia (Atrila tachycardia ), Cancer (Lung CA in remission s/p XRT with extensive consolidation within the superior segment of the right upper lobe consistent with known radiation change), COPD (home O2 and chr
prednisone dependent ) and Hypercholesterolemia
Additional Past Medical History:
chr hypoxic RF
Past Surgical History: Reports Appendectomy and Cholecystectomy
Social History
Tobacco: Non-smoker
Alcohol: None
Drug: None
Living: Shelter ([facility])
Family History
Family History: Not pertinent
Allergies / Home Medications
Allergies reflects when Allergies were last updated in [employer].
Home Medications with original date entered in [facility]
Allergy/Medication List:
Allergies
Allergy/AdvReac Type Severity Reaction Status Date / Time
Penicillins Allergy Swelling Verified 04/14/24 19:58
Home Medications
alendronate 70 mg tablet 70 mg PO MO 11/12/16
tramadol 50 mg tablet 25 mg PO DAILYPRN PRN moderate pain 11/12/16
atorvastatin 80 mg tablet 80 mg PO QPM 10/04/23
diltiazem HCl 120 mg capsule,extended release 24 hr (Cartia XT) 120 mg PO DAILY 10/04/23
acetaminophen 325 mg tablet 650 mg PO Q4HPRN PRN mild pain/fever>100.4 10/07/24
albuterol sulfate 90 mcg/actuation aerosol inhaler 2 puff inhalation R Q4HPRN PRN sob 10/07/24
aluminum-mag hydroxide-simethicone 200 mg-200 mg-20 mg/5 mL oral susp 10 ml PO Q6HPRN PRN indigestion 10/07/24
aspirin 81 mg tablet,delayed release 81 mg PO DAILY 10/07/24
bisacodyl 10 mg rectal suppository 10 mg FL DAILYPRN PRN 3 days no bm, mom ineffective 10/07/24
cholecalciferol (vitamin D3) 25 mcg (1,000 unit) tablet (Vitamin D3) 25 mcg PO DAILY 10/07/24
fluticasone 250 mcg-salmeterol 50 mcg/dose blistr powdr for inhalation (Advair Diskus) 1 inh inhalation R BID 10/07/24
lidocaine 4 % topical cream 1 applic topical TIDPRN PRN lower back 10/07/24
magnesium hydroxide 400 mg/5 mL oral suspension (Milk of Magnesia) 30 ml PO HSPRN PRN constipation 10/07/24
melatonin 3 mg tablet 3 mg PO HS 10/07/24
mirtazapine 7.5 mg tablet 7.5 mg PO HS 10/07/24
omeprazole magnesium 20 mg tablet,delayed release (Prilosec OTC) 20 mg PO DAILY 10/07/24
prednisone 10 mg tablet 30 mg PO DAILY 10/07/24
pregabalin 50 mg capsule 50 mg PO BID 10/07/24
tiotropium bromide 2.5 mcg/actuation mist for inhalation (Spiriva Respimat) 2 inh inhalation R DAILY 10/07/24
Review of Systems
-
Constitutional: Reports No Symptoms
EENT: Reports No Symptoms
Respiratory: Reports See HPI
Cardiac: Reports Other (tachycardia )
Abdomen/GI: Reports No Symptoms
: Reports No Symptoms
Musculoskeletal: Reports No Symptoms
Skin: Reports No Symptoms
Neurological: Reports No Symptoms
Endocrine: Reports No Symptoms
Hematologic/Lymphatic: Reports No Symptoms
Psych: Reports No Symptoms
Physical Exam
Vital Signs
Vital Signs
Pulse Resp BP Pulse Ox
78 20 134/83 97
10/07/24 20:00 10/07/24 20:00 10/07/24 20:00 10/07/24 19:00
Physical Exam
General: Well Developed, Well Nourished and No Apparent Distress
HEENT: NormoCephalic, Moist mucous membranes and Atraumatic
Cardiac: S1/S2 and Regular Rhythm; No Murmur or Rub
GI: Soft, Non Tender, Non Distended and Normal Bowel Sounds; No Organomegaly
Rectal: Deferred by Provider
Musculoskeletal: No Clubbing, No Cyanosis and No Edema
Skin: No Rash
Neuro: Nonfocal/grossly intact
Laboratory Results
-
10/07/24 18:24
10/07/24 18:24
Laboratory Results
Total Bilirubin 0.6 mg/dl (0.2-1.3) 10/07/24 18:24
AST 101 U/L (14-36) H 10/07/24 18:24
ALT 88 U/L (0-35) H 10/07/24 18:24
Alkaline Phosphatase 348 U/L (38-126) H 10/07/24 18:24
Data Reviewed
-
CT Scan: Report Reviewed by me
Lab Data: Labs Reviewed by me
Impression/Plan
-
Selected Entries
10/07/24
17:48 10/07/24
17:51
Pulse 89
Resp Rate 19
Blood pressure 139/92
SaO2 98
Oxygen Mode of Delivery Room air
Laboratory Tests
10/07/24
18:24
WBC 8.7
Hgb 11.6 L
Plt Count 228
Chloride 97 L
Carbon Dioxide 37 H
BUN 16
Creatinine 0.4 L
eGFR > 60.00
Glucose 143 H
AST 101 H
ALT 88 H
Alkaline Phosphatase 348 H
Total Protein 6.0 L
Albumin 3.0 L
TSH (Reflex) 0.37 L
Free T4 1.15
EKG
SINUS TACHYCARDIA WITH OCCASIONAL PREMATURE VENTRICULAR COMPLEXES
INCOMPLETE RIGHT BUNDLE BRANCH BLOCK
BORDERLINE ECG
WHEN COMPARED WITH ECG OF 14-APR-2024 20:10,
PREMATURE VENTRICULAR COMPLEXES ARE NOW PRESENT
FL INTERVAL HAS DECREASED
10/07/24 CT Chest PE Study
1. No evidence of pulmonary embolism.
2. extensive consolidation within the superior segment of the right upper lobe consistent with known radiation change.
3. extensive new consolidative opacity with surrounding groundglass opacities in the anterior right lower lobe and right middle lobe as well as to a lesser extent the left lower lobe which likely represent multifocal pneumonia, less likely
edema/atelectasis.
3. Small right pleural effusion, increased from prior.
4. There are compression deformities in the T1, T7, T8 and T9. The T7, T8 and T9 vertebral body fractures appears stable from prior. The T1 vertebral body fracture appears new from prior. Recommend correlation with point tenderness.
ASSESSMENT & PLAN
Multifocal new PNA ( RLL, RML, LLL) presumed HAP vs aspiration with increased O2 demand of home O2
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
Known extensive consolidation within RUK consistent with known XRT change
S/P OP PO AB 2 weks ago for PNA
HX Lung CA in remission s/p XRT
- HX home O2 and chr prednisone depedent COPD
- check PCT
- Agree with IV vanco and IV CFP
- Xopenex Neb in place of Albuterol INH
- c/w Spiriva INH
- c/w CHILD CARE NURSE PO Prednisone 30 daily
- Trend POx, Crow and WCC
- c/w chr O2 support to keep Pox > 93
Sinus tachycardia vs Atrial Tachycardia due to acute on chr Hypoxemia
- TLM Monitor
- Treat PNA abd observe HR
- c/w Diltiazem XT 120 daily
- c/w baby ASA
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 The T7, T8 and T9 vertebral body fractures
HX Osteoporosis
- stable from dami CT
- c/w Alendronate Qmonth
Nl cognitive function for advanced age
DVT Px: LMWH
DNR per patient and son at bed side
IP TLM
[2024-10-07 23:59] VITALS: BP 135/81
[2024-10-08] VITALS (7 sets, daily range): BP systolic 108–146; BP diastolic 68–103; PULSE 115; BMI 15.2
[2024-10-08] MEDS: MELATONIN 3 MG PO ×2 (00:01→20:53)
[2024-10-08] MEDS: REMERON 7.5 MG PO ×2 (00:01→20:53)
[2024-10-08 07:09] LABS: Hematocrit 34.7 % (37.0-47.0); Hemoglobin 11.4 g/dL (12.0-16.0); Mean Corp Hgb Conc. 32.9 g/dL (33.0-37.0); Mean Corpuscular Hgb 28.9 pg (27.0-31.0); Mean Corpuscular Volume 87.8 fL (81.0-99.0); Mean Platelet Volume 10.1 fL (7.4-10.4); Platelet Count 225 10^3/uL (130-400); Red Blood Cell Count 3.95 10^6/uL (4.20-5.40); Red Cell Dist. Width 15.3 % (11.5-14.5); White Blood Cell Count 8.9 10^3/uL (4.8-10.8)
[2024-10-08 07:39] LABS: Albumin 2.6 g/dl (3.5-5.0); Blood Urea Nitrogen 14 mg/dl (7-17); Calcium 8.6 mg/dl (8.4-10.2); Chloride 98 mmol/L (98-107); Glucose 77 mg/dl (70-99); Potassium 4.2 mmol/L (3.5-5.1); Sodium 139 mmol/L (135-145); Total Bilirubin 0.6 mg/dl (0.2-1.3); Total Protein 5.4 g/dl (6.3-8.2)
[2024-10-08 07:45] LABS: ALT (SGPT) 88 U/L (0-35); AST (SGOT) 87 U/L (14-36); Alkaline Phosphatase 342 U/L (38-126); Carbon Dioxide 38 mmol/L (22-30); Estimated Creatinine Clearance 35 ml/min; eGFR > 60.00
[2024-10-08 07:46] LABS: Procalcitonin 0.06 ng/ml (0.0-0.25)
[2024-10-08] MEDS: SPIRIVA RESPIMAT 2.5 MCG 2 PUFF INH (07:49)
[2024-10-08] MEDS: ADVAIR HFA 115/21 MCG INHALER 2 PUFF INH ×2 (07:49→19:38)
[2024-10-08] MEDS: VIBRAMYCIN 100 MG PO ×2 (09:57→20:51)
[2024-10-08] MEDS: CARDIZEM CD 120 MG PO (09:57)
[2024-10-08] MEDS: VITAMIN D3 (cholecalciferol) 25 MCG PO (09:57)
[2024-10-08] MEDS: DELTASONE 30 MG PO (09:57)
[2024-10-08] MEDS: FLUSH (NSS) 1 FLUSH IV (09:58)
[2024-10-08] MEDS: MAXIPIME 2000 MG IV ×2 (09:58→20:49)
[2024-10-08] MEDS: PROTONIX 40 MG PO (09:58)
[2024-10-08] MEDS: STERILE WATER FOR INJECTION 10 ML IV ×2 (09:58→20:51)
[2024-10-08] MEDS: ASPIR LOW (ENTERIC COATED) 81 MG PO (09:58)
--- NOTE | 2024-10-08 14:21 | W.PN.HOSP.TC ---
Today's Communication/Plan
-
CW ABX
ID eval
VSE
Assessment / Plan
Assessment / Plan
Multifocal new PNA ( RLL, RML, LLL) presumed HAP vs aspiration with increased O2 demand of home O2
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
Known extensive consolidation within RUK consistent with known XRT change
S/P OP PO AB 2 weks ago for PNA
HX Lung CA in remission s/p XRT
- HX home O2 and chr prednisone depedent COPD
- PCT normal but pt with left shift . With normal PCT unclear if aspiration pneumonitis or pneumonia. Will ask ID to see.
- cw IV CFP and flagyl
- Hold on Xopenex Neb as no active wheeze and pt is tachy
- c/w Spiriva INH
- c/w PARKING METER ATTENDANT PO Prednisone 30 daily
- Trend POx, Crow and WCC
- c/w chr O2 support to keep Pox > 93
Dysphagia -supposed to be on modified diet but not sure about compliance . SPT recommends NPO except meds and obtain a VSE
Sinus tachycardia vs Atrial Tachycardia due to acute on chr Hypoxemia
- TLM Monitor
- Treat PNA abd observe HR
- c/w Diltiazem XT 120 daily
- c/w baby ASA
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 The T7, T8 and T9 vertebral body fractures
HX Osteoporosis
- stable from dami CT
- c/w Alendronate Qmonth
Nl cognitive function for advanced age
DW SPT
Total time spent on today's encounter was 52 minutes which included time spent in counseling the patient/family regarding diagnosis and treatment plan as listed above, goals of care, and symptom management. Case was discussed with nursing staff,
specialists, and care coordinators/case management. All labs and imaging personally reviewed by me. Remainder the time spent in detailed review of previous records, lab data, imaging, and other medical provider documentation.
DVT Px: LMWH
DNR per patient and son at bed side
IP TLM
Anticipated Discharge: > 48 hours
Subjective/Interval History
-
Date of Service: October 08, 2024
Feels bit short of breath. Cough minimal but clear phlegm 2L of phlegm. No chest pain.
Denies any nausea or vomiting.
No fever or chills. No sweats. No abdominal pain. Denies any dizziness. No palpitations.
Objective Data
-
Labs:
Laboratory Results
10/08/24
06:31
WBC 8.9
Hgb 11.4 L
Hct 34.7 L
Plt Count 225
Sodium 139
Potassium 4.2
Chloride 98
Carbon Dioxide 38 H
BUN 14
Creatinine 0.5 L
Glucose 77
Calcium 8.6
Total Bilirubin 0.6
AST 87 H
ALT 88 H
Alkaline Phosphatase 342 H
Vital Signs:
Vital Signs
Temp Pulse Resp BP Pulse Ox
97.5 F 128 18 110/78 97
10/08/24 11:10 10/08/24 11:10 10/08/24 11:10 10/08/24 11:10 10/08/24 11:10
Physical Exam
-
General: Comfortable
Respiratory: Crackles (Right lower lobe) and Non Labored Respirations; Negative Wheezes or Accessory Resp Muscle Use
Cardiac: Regular Rhythm, S1/S2 and Tachycardic
GI: Soft and Nontender
Musculoskeletal: No Edema
Neuro: AO x 3
Data Reviewed
-
Labs: Labs Reviewed by me
--- NOTE | 2024-10-08 14:29 | PTOTSP ---
Speech Therapy Evaluation:
Pt with known minimal oral and moderate pharyngeal dysphagia s/p VSE in August 2024. See below for VSE summary. On this date, pt unable to recall recommended swallowing strategies from VSE, therefore suspect pt has not been implementing them, placing
her at high risk of aspiration and potentially contributing to new PNA. Pt accepted PO trials of mildly thick liquids (with compensations), puree, and soft solids with intermittent throat clearing throughout. Pt with multiple risk factors of
dysphagia including hx of lung cancer (reportedly in remission), COPD, chronic respiratory failure, and recurrent PNAs. In light of pt's established aspiration risk and observed difficulty recalling and implementing compensatory strategies, NPO is
recommended at this time. A repeat VSE is advised to further evaluate oropharyngeal swallow function and determine whether adjustments to current recommendations are appropriate.
VSE 08/27/2024:
- Minimal oral and moderate pharyngeal dysphagia
- Silent aspiration of thin liquids
- Trace to mild pharyngeal stasis
- Eventual trace penetration and aspiration likely arose from pharyngeal stasis following mildly thick liquid, moderately thick liquid, and pudding trials
- Recommended Diet Level: nectar thick liquids, chopped, moist solids and therapeutic trials with speech therapist only (thin liquid by single sip and chin tuck)
- Compensations and Strategies: maintain 90 degrees upright sitting position when eating or drinking, 45 degree chin tuck, use a 'hard effortful' swallow, small single sips of liquid/avoid continuous swallows, small bites of food, throat clear
intermittently throughout meal and alternate sip of liquid after every few bites of food to assist with esophageal clearance
Recommend:
1. NPO
2. Medications crushed in puree
3. Oral care 3x/daily
4. VSE to further assess oropharyngeal swallow function
5. NUCLEAR PLANT TECHNICAL ADVISOR to follow pending results and recommendations from VSE
[2024-10-08] MEDS: TYLENOL 650 MG PO (14:33)
--- NOTE | 2024-10-08 15:19 | CM ---
Patient seen bedside, initial assessment. Patient is a LTC resident at [facility]. Patient uses WC and walker primarily. Patient reports most of the time she gets food brought to her room. Patient gets assisted w/ bathing, she shares she gets
assisted w/ dressing every now and then but does other personal care and grooming independently. Patient shared she had rehab at [facility] in the past. No HC hx reported.
PCP: Kenny Burnham
Pharmacy: [facility]
Therapy assessed patient and is recommending patient to return to facility if patient is at baseline w/ assistance
Return to SNF referral placed in [facility]
Plan: Return to [facility] when stable
[2024-10-08] MEDS: LIPITOR 80 MG PO (18:21)
[2024-10-08] MEDS: LOVENOX 40 MG SC (18:21)
[2024-10-09 03:09] VITALS: BP 144/88
--- NOTE | 2024-10-09 07:21 | CON.ID ---
Consultation
-
Date/Time Consultation Requested: 10/08/2024 14:27
Date/Time Consultation Performed: 10/09/2024 0658
Requesting Provider: Dr. Kan
Performing Provider: Dr. Osborne
Reason for Consultation: Pneumonia
Chief Complaint / Past History
History of Present Illness
Lisset Carter is an 89-year-old female being evaluated at the request of Dr. Kan in regards to pneumonia. History is obtained from chart review, along with patient interview.
The patient presented to [facility] on 10/09 from [facility] following the finding of tachycardia by residential staff. Per review of notes, she was at physical therapy yesterday and she was found to have a heart rate in the 130s and
possibly irregular. She was sent in for further evaluation. Additional history includes that of recently having pneumonia and receiving a course of antibiotics.
Reviewed notes reveals a speech therapy evaluation in early August which revealed dysphagia and silent aspiration. She has been placed on thickening agents. Additionally, she was seen in the ER and late March, and received a course of cefdinir
and doxycycline at that time.
At this time, she denies any specific complaints. She denies shortness of breath. She denies cough. She denies abdominal pain, nausea, vomiting or diarrhea.
Past History
Additional Past Medical History:
Hx Lung cancer
COPD
Chronic respiratory insufficiency
Atrial tachycardia
Hyperlipidemia
Osteoporosis
Additional Past Surgical History:
Appendectomy
Tonsillectomy
Allergy History:
Penicillins Allergy (Verified 04/14/24 19:58)
Swelling
Medications Reviewed: Yes
Current Antibiotics:
Cefepime 2 g IV every 12 hours
Doxycycline 100 mg p.o. twice daily
Social History
Tobacco: Non-Smoker
Alcohol: None
Drug: None
Living: Senior Living
Employment: Retired
Family History
Family History: Not Pertinent
Review of Systems
Vital Signs
Temp Pulse Resp BP Pulse Ox
97.4 F 102 16 144/88 94
10/09/24 03:09 10/09/24 03:09 10/09/24 03:09 10/09/24 03:09 10/09/24 03:09
Physical Exam
Physical Exam
Constitutional: No Acute Distress, Chronically Ill and Cachetic (profound)
Eyes: Sclera Anicteric and Other (Arcus senilis)
Pharynx: Benign
Cardiovascular: Irregular Rate and S1/S2; Negative S3/S4
Pulmonary: Coarse and Non Labored; Negative Wheezes
Gastrointestinal: Soft, Non Tender, Non Distended, Normal Bowel Sounds, No Rebound and No Guarding
Extremities: Negative Edema, Cyanosis or Erythema
Skin: Warm and Dry; Negative Rash or Jaundice
Neurological: Awake and Alert
Psychological: Calm
.
Lab / Diagnostic Study Results
Abs Immat Gran (auto) 0.2 10^3/uL (0-0.05) H 10/07/24 18:24
Absolute Neuts (auto) 7.9 10^3/uL (1.4-6.5) H 10/07/24 18:24
Absolute Lymphs (auto) 0.4 10^3/uL (1.2-3.4) L 10/07/24 18:24
Absolute Monos (auto) 0.3 10^3/uL (0.1-0.6) 10/07/24 18:24
Absolute Basos (auto) 0.0 10^3/uL (0-0.2) 10/07/24 18:24
Immature Gran % 1.8 % (0-0.5) H 10/07/24 18:24
Neutrophils % 90.4 % (42.2-75.2) H 10/07/24 18:24
Lymphocytes % 4.0 % (20.5-51.1) L 10/07/24 18:24
Monocytes % 3.7 % (1.7-9.3) 10/07/24 18:24
Eosinophils % 0.0 % (0-6) 10/07/24 18:24
Basophils % 0.1 % (0-2) 10/07/24 18:24
Procalcitonin 0.06 ng/ml (0.0-0.25) 10/08/24 06:31
Microbiology Results
Micro:
10/08/24 00:38 MRSA Screen - Pending
Nose
10/08/24
06:31
Procalcitonin 0.06
Imaging:
10/07/24 CT chest (PE study): No filling defects to suggest pulmonary embolism. Central airways are patent. Consolidation within the superior right lower lobe consistent with known postradiation changes. There is extensive new consolidative
opacity with surrounding groundglass opacities in the anterior right lower lobe and right middle lobe as well as to a lesser extent the left lower lobe which likely represent multifocal pneumonia, less likely edema/atelectasis. Severe biapical
scarring is noted and unchanged. Please see full dictation for additional detail. Film personally viewed.
09/05/2024 CXR: Opacity projecting over the right mid/upper lung. Mild biapical pleural-parenchymal scarring. There is slight tenting of the right hemidiaphragm. No pleural effusion or pneumothorax. Please see full dictation for additional detail.
Assessment / Plan
Tachycardia
Pulmonary infiltrates
Normal white count with left shift
- steroid component?
Transaminitis
Normal procalcitonin
Profound cachexia
Hx Lung cancer
COPD
Chronic respiratory insufficiency
Atrial tachycardia
Hyperlipidemia
Osteoporosis
Recommendations:
At present, not clear as to the degree of acute pneumonia that the patient is experiencing. Findings on imaging may represent scarring, pneumonitis from chronic aspiration, or persistent infiltrates from reported pneumonia several weeks ago.
Current procal is noted to be negative, which argues against a bacterial infection at present.
Discontinue further doxycycline and cefepime, with close clinical monitoring.
Strict aspiration precautions given known silent aspiration.
Follow white count and temperature curve.
Profound cachexia may need to be addressed Current BMI = 15. Protein and albumin noted to be low. Patient appears palliative care (or even hospice) appropriate.
[2024-10-09] MEDS: SPIRIVA RESPIMAT 2.5 MCG 2 PUFF INH (07:34)
[2024-10-09] MEDS: ADVAIR HFA 115/21 MCG INHALER 2 PUFF INH ×2 (07:34→19:40)
[2024-10-09 07:35] VITALS: BP 140/92
[2024-10-09 08:16] LABS: Hematocrit 34.3 % (37.0-47.0); Hemoglobin 11.6 g/dL (12.0-16.0); Mean Corp Hgb Conc. 33.8 g/dL (33.0-37.0); Mean Corpuscular Hgb 29.1 pg (27.0-31.0); Mean Platelet Volume 9.9 fL (7.4-10.4); Platelet Count 226 10^3/uL (130-400); Red Blood Cell Count 3.99 10^6/uL (4.20-5.40); Red Cell Dist. Width 15.3 % (11.5-14.5); White Blood Cell Count 8.9 10^3/uL (4.8-10.8)
[2024-10-09 08:32] LABS: Blood Urea Nitrogen 16 mg/dl (7-17); Calcium 8.6 mg/dl (8.4-10.2); Carbon Dioxide 35 mmol/L (22-30); Chloride 97 mmol/L (98-107); Estimated Creatinine Clearance 35 ml/min; Glucose 77 mg/dl (70-99); Potassium 3.8 mmol/L (3.5-5.1); Sodium 137 mmol/L (135-145); eGFR > 60.00
[2024-10-09] MEDS: DELTASONE 30 MG PO (08:43)
[2024-10-09] MEDS: VITAMIN D3 (cholecalciferol) 25 MCG PO (08:43)
[2024-10-09] MEDS: PROTONIX 40 MG PO (08:43)
[2024-10-09] MEDS: ASPIR LOW (ENTERIC COATED) 81 MG PO (08:43)
[2024-10-09] MEDS: CARDIZEM CD 120 MG PO (08:44)
[2024-10-09] MEDS: FLUSH (NSS) 1 FLUSH IV ×3 (08:44→17:38)
--- NOTE | 2024-10-09 09:20 | PTOTSP ---
Speech Language Pathology
VIDEOFLUOROSCOPIC SWALLOWING EXAMINATION (VSE) completed. Pt with mild oral and mod-severe pharyngeal dysphagia. Pt with silent aspiration (PAS 8) with all consistencies trialed (thin liquids via tsp/cup, mildly thick liquids via tsp, moderately
thick liquids via tsp, puree). Swallow function has worsened since last VSE completed as an OP on 08/27/24. Unknown etiology.
Recommend:
(1) NPO
(2) Oral care 4x/day with suctioning as needed
(3) Non-oral meds
(4) Allow ice chips post oral care per Aspiration Risk Hydration Protocol (ARHP)
(5) GOC discussion
(6) VICE PRESIDENT [employer] to continue to follow
[2024-10-09 11:21] VITALS: BP 124/81
--- NOTE | 2024-10-09 13:26 | W.PN.HOSP.TC ---
Today's Communication/Plan
-
Start on IV fluids
CT of the head
Myasthenia gravis antibody
Goals of care discussions about PEG tube
Assessment / Plan
Assessment / Plan
Multifocal new PNA ( RLL, RML, LLL) presumed HAP vs aspiration with increased O2 demand of home O2
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
Known extensive consolidation within RUK consistent with known XRT change
S/P OP PO AB 2 weks ago for PNA
HX Lung CA in remission s/p XRT
- HX home O2 and chr prednisone depedent COPD
- PCT normal but pt with left shift . With normal PCT unclear if aspiration pneumonitis or pneumonia. Appreciate ID input. Antibiotics on hold as felt more aspiration pneumonitis than pneumonia. Today patient is afebrile and white count remains
normal.
- c/w Spiriva INH
- c/w [employer] PO Prednisone 30 daily
- Trend POx, Crow and WCC
- c/w chr O2 support to keep Pox > 93
Dysphagia -supposed to be on modified diet but not sure about compliance . SPT recommends NPO and VSE. VSE today shows aspiration to all consistencies including POA and recommend strict n.p.o. and goals of care discussions. VSE report shows
pharyngeal dysphagia. Patient had a prior history of lung cancer s/p radiation. During discussions today with the daughter she has got ongoing dysphagia chronically. She had prior video swallow exam twice and was prescribed modified diet but no
etiology was looked into. She had an MRI of the brain mid last year for malignancy workup. Was negative.
Check a CT of the head to rule out any acute intercurrent issues. Check a myasthenia gravis antibody
Discussed with daughter to talk to mom about the feeding tube. IV fluids in meantime.
Sinus tachycardia vs Atrial Tachycardia due to acute on chr Hypoxemia
- TLM Monitor
- Treat PNA abd observe HR
- c/w Diltiazem XT 120 daily
- c/w baby ASA
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 The T7, T8 and T9 vertebral body fractures
HX Osteoporosis
- stable from dami CT
- c/w Alendronate Qmonth
History of lung cancer s/p radiation treatments. Most recent PET scan was in May 2024 which showed no evidence of recurrent disease
Nl cognitive function for advanced age
DVT Px: LMWH
DNR
IP TLM
Total time spent on today's encounter was 52 minutes which included time spent in counseling the patient/family regarding diagnosis and treatment plan as listed above, goals of care, and symptom management. Case was discussed with nursing staff,
specialists, and care coordinators/case management. All labs and imaging personally reviewed by me. Remainder the time spent in detailed review of previous records, lab data, imaging, and other medical provider documentation.
Anticipated Discharge: > 48 hours
Subjective/Interval History
-
Date of Service: October 09, 2024
Denies shortness of breath. Not much of cough.
Had VSE today which she failed.
Denies any chest pain. No nausea vomiting.
Prior history of swallowing difficulty and was on modified diet.
Objective Data
-
Labs:
Laboratory Results
10/09/24
07:49
WBC 8.9
Hgb 11.6 L
Hct 34.3 L
Plt Count 226
Sodium 137
Potassium 3.8
Chloride 97 L
Carbon Dioxide 35 H
BUN 16
Creatinine 0.4 L
Glucose 77
Calcium 8.6
Vital Signs:
Vital Signs
Temp Pulse Resp BP Pulse Ox
98 F 103 18 124/81 99
10/09/24 11:21 10/09/24 11:21 10/09/24 11:21 10/09/24 11:21 10/09/24 11:21
I&O
04/16/25 04/17/25 04/18/25
06:59 06:59 06:59
Intake Total 300 / 300
Balance 300 / 300
Review of Systems
-
Constitutional: Denies Fever
EENT: Denies Sore Throat
Abdomen/GI: Denies Abdominal Pain, Nausea or Vomiting
Neuro: Denies Dizzy
Physical Exam
-
General: No Apparent Distress
Respiratory: Crackles (right lower lobe) and Non Labored Respirations; Negative Wheezes or Accessory Resp Muscle Use
Cardiac: Regular Rhythm and S1/S2
GI: Soft and Nontender
Neuro: AO x 3
Psych: Calm
Data Reviewed
-
Labs: Labs Reviewed by me
--- NOTE | 2024-10-09 13:34 | PN.CDI ---
CDI
- -
CDI:
Physician Documentation Request
Admit Date: 10/07/24 22:16
Dear Doctor Lucius,
Please review the following and provide your response in the progress notes.
Clinical Indicators:
Pt admitted with Aspiration pneumonia/Atrial tachy
Documented in the record BMI 15.2/'profound Cachexia'
Nutrition consult 10/08, ' CBW: 75 lbs 6 oz BMI 15.2 underweight range (10/08). Pts weight previous admission listed as 84 lbs 04/14 reflective of a 9 lb (11%) weight loss in 6 months significant. During visit RD able to visualize temporal wasting,
orbital area sunken in, apparent ribs, protrusion of clavicle, fat loss over triceps and calf muscle wasting. With observed muscle and fat wasting, > 10% weight loss in 6 months and < 75% estimated needs > 1 month pt meets AND/ASPEN criteria for
severe protein calorie malnutrition of chronic illness....Assessment Subcutaneous loss of over rib cage Severity Severe , Tricep Severe , Orbital Severe, Assessment muscle loss over calf Severity Moderate, Clavicle Moderate , Temporal Severe ....'
Based on the above information and your assessment, which of the following most accurately represents the patient's nutritional status?
Severe Protein Calorie Malnutrition
Other (please specify)
[place] Criteria (ACP Hospitalist 2017)
2 or more criteria must be present for either
non severe or severe malnutrition
Note that the criteria differs related to the
presence of an acute or chronic illness
Acute Illness Chronic Illness
Energy Intake Non Severe: <75% for >7 days Non Severe: <75% for >1 month
Severe: <50% for >5 days Severe: <75% for >1 month
Weight Loss Non Severe: 1-2% over 1 week Non Severe: 5% over 1 month
5% over 1 month 7.5% over 3 months
7.5% over 3 months 10% over 6 months
1 year N/A 20% over 1 year
Severe: >2% over 1 week Severe: >5% over 1 month
>5% over 1 month >7.5% over 3 months
>7.5% over 3 months >10% over 6 months
1 year N/A >20% over 1 year
Body Fat Non Severe: Mild Decrease Non Severe: Mild Loss
Severe: Moderate Decrease Severe: Severe Loss
Muscle Mass Non Severe: Mild Decrease Non Severe: Mild Loss
Severe: Moderate Decrease Severe: Severe Loss
Fluid Accumulation Non Severe: Mild Accumulation Non Severe: Mild Accumulation
Severe: Moderate to severe Severe: Moderate to severe
accumulation accumulation
Reduced Lead Network Engineer Strength Non Severe: N/A Non Severe: N/A
Severe: Measurably reduced Severe: Measurably reduced
Use of terms such as suspected, likely, concern for, or probable (associated with a specific diagnosis that is being evaluated, monitored, or treated as if it exists) are acceptable and can be coded in the inpatient setting, when documented at the
time of discharge.
Thank you,
Georgina Dixon RN
CDI Specialist
[facility]
Please use your independent medical judgment in providing your response.
[2024-10-09] MEDS: D5/0.45%NSS with KCL 10 MEQ 1000 IV (13:37)
[2024-10-09 16:26] VITALS: BP 115/77
--- NOTE | 2024-10-09 16:41 | PTCARENOTE ---
Pt AAO x3, NEUMANN; OOB to chair/stretcher with assist x1/walker; tires easily; pt very weak. VSS. Telemetry:NSR with occ dropped beats. On nc 2lpm- pulse ox 98%, pt with (+) slight ROBB; occ dry,non-productive cough. Denies SOB. Abd soft, sl
rounded, strict NPO maintained. Incont urine. IVF's D 5 1/@ NSS with 10 meq KCL @ 80 ml/hr infusing via Lt forearm site without sx of infiltration. Resting in bed at present, no c/o. Will continue to monitor.
[2024-10-09] MEDS: ASPIRIN RECTAL (17:33)
[2024-10-09] MEDS: DECADRON 2 MG IV (17:37)
[2024-10-09] MEDS: LOVENOX 40 MG SC (17:38)
[2024-10-09 19:56] VITALS: BP 132/80
[2024-10-09 23:55] VITALS: BP 138/87
[2024-10-10] VITALS (8 sets, daily range): BP systolic 109–142; BP diastolic 76–90; PULSE 96; O2SAT 95
[2024-10-10] MEDS: DECADRON 2 MG IV ×2 (03:25→15:37)
[2024-10-10] MEDS: D5/0.45%NSS with KCL 10 MEQ 1000 IV ×2 (03:29→15:37)
[2024-10-10 07:42] LABS: Blood Urea Nitrogen 14 mg/dl (7-17); Calcium 8.3 mg/dl (8.4-10.2); Carbon Dioxide 34 mmol/L (22-30); Chloride 96 mmol/L (98-107); Estimated Creatinine Clearance 35 ml/min; Glucose 157 mg/dl (70-99); Potassium 4.7 mmol/L (3.5-5.1); Sodium 137 mmol/L (135-145); eGFR > 60.00
[2024-10-10] MEDS: SPIRIVA RESPIMAT 2.5 MCG 2 PUFF INH (07:50)
[2024-10-10] MEDS: ADVAIR HFA 115/21 MCG INHALER 2 PUFF INH ×2 (07:51→20:30)
[2024-10-10] MEDS: ASPIRIN 300 MG RECTAL (09:09)
[2024-10-10] MEDS: PROTONIX IV 40 MG IV (09:10)
[2024-10-10] MEDS: NSS (PRESERVATIVE FREE) 10 ML IV (09:10)
--- NOTE | 2024-10-10 09:28 | PN.CDI ---
CDI
- -
CDI:
Physician Documentation Request
Admit Date: 10/07/24 22:16
Dear Doctor Lucius,
Please review the following and provide your response in the progress notes.
Clinical Indicators:
Pt admitted with Aspiration pneumonia/Atrial tachycardia
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 The T7, T8 and T9 vertebral body fractures HX Osteoporosis ....- c/w Alendronate Qmonth ...'
Chest CT: ,'There are compression deformities in the T1, T7, T8 and T9. The T7, T8 and T9 vertebral body fractures appears stable from prior. The T1 vertebral body fracture appears new from prior.'
Please provide further specificity regarding the suspected etiology of the above Fractures:
Compression Fracture due to osteoporosis
Nontraumatic compression fractures
Other ( please specify)
Use of terms such as suspected, likely, concern for, or probable (associated with a specific diagnosis that is being evaluated, monitored, or treated as if it exists) are acceptable and can be coded in the inpatient setting, when documented at the
time of discharge.
Thank you,
Georgina Dixon RN
CDI Specialist
[employer]
Please use your independent medical judgment in providing your response.
--- NOTE | 2024-10-10 10:47 | W.PN.ID1 ---
Date of Service
Date of Service: October 10, 2024
Today's Communication
Continue antibiotics.
Assessment / Plan
Tachycardia
Pulmonary infiltrates
Normal white count with left shift
- steroid component?
Transaminitis
Normal procalcitonin
Profound cachexia
Aspiration Syndrome
Hx Lung cancer
COPD
Chronic respiratory insufficiency
Atrial tachycardia
Hyperlipidemia
Osteoporosis
Recommendations:
Findings on imaging likely represent pneumonitis from chronic aspiration, or persistent infiltrates from reported pneumonia several weeks ago.
Current procal is noted to be negative, which argues against an acute bacterial infection at present.
Monitor off abx.
Strict aspiration precautions given known silent aspiration.
Follow white count and temperature curve.
Profound cachexia may need to be addressed Current BMI = 15. Protein and albumin noted to be low. Patient appears palliative care (or even hospice) appropriate.
����������������������������������������������������������
Chief Complaint
-: Pneumonia
Subjective / Review of Systems
Review of Systems: No Fever, No Chills, Cough, No Sputum Production and No Abdominal Pain
Vital Signs / Physical Exam
Vital Signs
Vital Signs
Temp Pulse Resp BP Pulse Ox
98.0 F 95 16 131/84 93
10/10/24 07:50 10/10/24 07:54 10/10/24 07:54 10/10/24 07:50 10/10/24 08:55
Physical Exam
Constitutional: Comfortable, Chronically Ill, Cachetic and Other (Extremely frail in appearance)
Eyes: No Conjunctival Hemorrhage and Sclera Anicteric
Cardiovascular: S1/S2; Negative S3/S4
Pulmonary: Coarse and Non Labored
Gastrointestinal: Soft, Non Tender and Non Distended
Skin: Warm and Dry; Negative Rash
Neurological: Awake and Alert
Psychological: Calm
Objective Data
Lab Data
Lab Results
10/09/24 07:49
10/10/24 06:49
Estimated Creat Clear 35 ml/min 10/10/24 06:49
Total Bilirubin 0.6 mg/dl (0.2-1.3) 10/08/24 06:31
AST 87 U/L (14-36) H 10/08/24 06:31
ALT 88 U/L (0-35) H 10/08/24 06:31
Alkaline Phosphatase 342 U/L (38-126) H 10/08/24 06:31
Most recent labs reviewed.
Micro Results:
10/08/24 00:38 MRSA Screen - Final
Nose No Methicillin Resistant Staphylococcus aureus isolated.
10/08/24
06:31
Procalcitonin 0.06
Imaging:
10/07/24 CT chest (PE study): No filling defects to suggest pulmonary embolism. Central airways are patent. Consolidation within the superior right lower lobe consistent with known postradiation changes. There is extensive new consolidative
opacity with surrounding groundglass opacities in the anterior right lower lobe and right middle lobe as well as to a lesser extent the left lower lobe which likely represent multifocal pneumonia, less likely edema/atelectasis. Severe biapical
scarring is noted and unchanged. Please see full dictation for additional detail. Film personally viewed.
09/05/2024 CXR: Opacity projecting over the right mid/upper lung. Mild biapical pleural-parenchymal scarring. There is slight tenting of the right hemidiaphragm. No pleural effusion or pneumothorax. Please see full dictation for additional detail.
--- NOTE | 2024-10-10 14:15 | W.PN.HOSP.TC ---
Today's Communication/Plan
-
Ongoing discussions about PEG tube
CW IV fluids
Assessment / Plan
Assessment / Plan
Multifocal new PNA ( RLL, RML, LLL) presumed HAP vs aspiration with increased O2 demand of home O2
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
Known extensive consolidation within RUK consistent with known XRT change
S/P OP PO AB 2 weks ago for PNA
HX Lung CA in remission s/p XRT
- HX home O2 and chr prednisone depedent COPD
- PCT normal but pt with left shift . With normal PCT unclear if aspiration pneumonitis or pneumonia. Appreciate ID input. Antibiotics on hold as felt more aspiration pneumonitis than pneumonia. Remains afebrile and white count remains normal.
- c/w Spiriva INH
- c/w SENIOR DATA INTEGRATION DEVELOPER PO Prednisone 30 daily
- Trend POx, Crow and WCC
- c/w chr O2 support to keep Pox > 93
Dysphagia -supposed to be on modified diet but not sure about compliance . SPT recommends NPO and VSE. VSE today shows aspiration to all consistencies including POA and recommend strict n.p.o. and goals of care discussions. VSE report shows
pharyngeal dysphagia. Patient had a prior history of lung cancer s/p radiation. During discussions today with the daughter she has got ongoing dysphagia chronically. She had prior video swallow exam twice and was prescribed modified diet but no
etiology was looked into. She had an MRI of the brain mid last year for malignancy workup. Was negative.
CT of the head no acute intercurrent issues. Ach ab pending - doubt clinically
Discussed with daughter to talk to mom about the feeding tube. Patient unable to make decision on PEG . cw IV fluids in meantime.
Sinus tachycardia vs Atrial Tachycardia due to acute on chr Hypoxemia
- HR controlled
- c/w Diltiazem XT 120 daily
- c/w baby ASA
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 The T7, T8 and T9 vertebral body fractures
HX Osteoporosis
- stable from dami CT
- c/w Alendronate Qmonth
History of lung cancer s/p radiation treatments. Most recent PET scan was in May 2024 which showed no evidence of recurrent disease
Nl cognitive function for advanced age
Patient with ongoing dysphagia for few months. She has failed video swallow this time and strict n.p.o. recommended.
She is cachectic with a BMI of 15
She had prior lung cancer for which received radiation. Last PET scan end of last year will without any recurrence of disease.
Discussed with patient the importance of nutrition she is having hard time in making a decision about PEG tube. She is going to talk to the kids today and let me know.
DVT Px: LMWH
DNR
IP TLM
Anticipated Discharge: > 48 hours
Subjective/Interval History
-
Date of Service: October 10, 2024
Patient denies any shortness of breath or chest pain.
No nausea vomiting.
No fever chills.
She still has not made up her mind on PEG tube
Objective Data
-
Labs:
Laboratory Results
10/10/24
06:49
Sodium 137
Potassium 4.7
Chloride 96 L
Carbon Dioxide 34 H
BUN 14
Creatinine 0.5 L
Glucose 157 H
Calcium 8.3 L
Vital Signs:
Vital Signs
Temp Pulse Resp BP Pulse Ox
97.4 F 82 18 121/76 96
10/10/24 11:52 10/10/24 11:52 10/10/24 11:52 10/10/24 11:52 10/10/24 11:52
I&O
10/09/24 10/10/24 10/11/24
06:59 06:59 06:59
Intake Total 300 / 300 200 / 200
Balance 300 / 300 200 / 200
Review of Systems
-
Respiratory: Denies Trouble Breathing
Cardiac: Denies Chest Pain
Abdomen/GI: Denies Abdominal Pain, Nausea or Vomiting
Neuro: Denies Dizzy
Physical Exam
-
General: No Apparent Distress
HEENT: Moist Mucous Membranes
Respiratory: Crackles (Right base), Non Labored Respirations and Other (On room air); Negative Accessory Resp Muscle Use
Cardiac: Regular Rhythm and S1/S2
Neuro: AO x 3
--- NOTE | 2024-10-10 14:40 | CM ---
Chart reviewed. Care ongoing. Patient is a LTC resident at [facility]
Ongoing discussions about peg tube
Plan: Return to [facility] when stable
[2024-10-10] MEDS: LOVENOX 40 MG SC (17:02)
[2024-10-10] MEDS: D5/0.9% SODIUM CHLORIDE 1000 IV (23:10)
[2024-10-11 03:07] VITALS: BP 169/94
[2024-10-11] MEDS: DECADRON 2 MG IV ×2 (03:39→16:35)
[2024-10-11] MEDS: ULTRAM 25 MG PO ×2 (03:46→23:21)
[2024-10-11 07:23] VITALS: BP 167/105
[2024-10-11] MEDS: NSS (PRESERVATIVE FREE) 10 ML IV (08:00)
--- NOTE | 2024-10-11 08:00 | PTCARENOTE ---
Received patient with complaints of chest pain. States it feels like a sharp pressure across chest. EKG done. Dr Kan made aware with orders to give SL nitro 0.4mg x1 now. Will continue to monitor closely.
[2024-10-11] MEDS: PROTONIX IV 40 MG IV (08:01)
[2024-10-11] MEDS: ASPIRIN 300 MG RECTAL (08:01)
[2024-10-11] MEDS: NITROSTAT (SUBLINGUAL) 0.4 MG SL (08:02)
[2024-10-11] MEDS: SPIRIVA RESPIMAT 2.5 MCG 2 PUFF INH (08:22)
[2024-10-11] MEDS: ADVAIR HFA 115/21 MCG INHALER 2 PUFF INH ×2 (08:22→20:05)
--- NOTE | 2024-10-11 08:30 | PTCARENOTE ---
Patient admits chest pain is completely gone. Will continue to monitor.
[2024-10-11 11:15] VITALS: BP 145/93
--- NOTE | 2024-10-11 11:58 | W.PN.HOSP.TC ---
Today's Communication/Plan
-
Resume modified diet as before
Consult case management for hospice
Assessment / Plan
Assessment / Plan
Multifocal new PNA ( RLL, RML, LLL) presumed HAP vs aspiration with increased O2 demand of home O2
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
Known extensive consolidation within RUK consistent with known XRT change
S/P OP PO AB 2 weks ago for PNA
HX Lung CA in remission s/p XRT
- HX home O2 and chr prednisone depedent COPD
- PCT normal but pt with left shift . With normal PCT unclear if aspiration pneumonitis or pneumonia. Appreciate ID input. Antibiotics on hold as felt more aspiration pneumonitis than pneumonia. Remains afebrile and white count remains normal.
- c/w Spiriva INH
- c/w [employer] PO Prednisone 30 daily
- Trend POx, Crow and WCC
- c/w chr O2 support to keep Pox > 93
Dysphagia -supposed to be on modified diet but not sure about compliance . SPT recommends NPO and VSE. VSE today shows aspiration to all consistencies including POA and recommend strict n.p.o. and goals of care discussions. VSE report shows
pharyngeal dysphagia. Patient had a prior history of lung cancer s/p radiation. During discussions today with the daughter she has got ongoing dysphagia chronically. She had prior video swallow exam twice and was prescribed modified diet but no
etiology was looked into. She had an MRI of the brain mid last year for malignancy workup. Was negative.
CT of the head no acute intercurrent issues. Ach ab pending - doubt clinically
Discussed with daughter to talk to mom about the feeding tube. Patient unable to make decision on PEG . cw IV fluids in meantime.
Sinus tachycardia vs Atrial Tachycardia due to acute on chr Hypoxemia
- HR controlled
- c/w Diltiazem XT 120 daily
- c/w baby ASA
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 The T7, T8 and T9 vertebral body fractures
HX Osteoporosis
- stable from dami CT
- c/w Alendronate Qmonth
History of lung cancer s/p radiation treatments. Most recent PET scan was in May 2024 which showed no evidence of recurrent disease
Patient with ongoing dysphagia for few months. She has failed video swallow this time and strict n.p.o. recommended.
She is cachectic with a BMI of 15
She had prior lung cancer for which received radiation. Last PET scan end of last year will without any recurrence of disease.
Discussed with patient and daughter at bedside.
They had a family discussion last evening and patient has decided to go back [facility] the [facility] and then transition into hospice.
DVT Px: LMWH
DNR
IP TLM
Total time spent on today's encounter was 52 minutes which included time spent in counseling the patient/family regarding diagnosis and treatment plan as listed above, goals of care, and symptom management. Case was discussed with nursing staff,
specialists, and care coordinators/case management. All labs and imaging personally reviewed by me. Remainder the time spent in detailed review of previous records, lab data, imaging, and other medical provider documentation.
Anticipated Discharge: 24 - 48 hours
Subjective/Interval History
-
Date of Service: October 11, 2024
Patient feels okay. Denies shortness of breath. Off of oxygen.
Denies any nausea vomiting.
This morning she had moderate chest discomfort. Localized. No aggravating relieving factors. No radiation. No associated sweating or lightheadedness. Did not experience these kinds of pains before. Denies any angina. She was given a dose of
sublingual nitro with improvement. EKG did not show any acute ST-T changes. Patient advised the report to the nurse if she develops any other chest pain.
Objective Data
-
Vital Signs:
Vital Signs
Temp Pulse Resp BP Pulse Ox
97.5 F 101 16 104/70 92
10/11/24 07:23 10/11/24 08:25 10/11/24 08:25 10/11/24 08:07 10/11/24 08:25
I&O
10/10/24 10/11/24 10/12/24
06:59 06:59 06:59
Intake Total 200 / 200 1320 / 1320
Balance 200 / 200 1320 / 1320
Physical Exam
-
General: Comfortable
Respiratory: Crackles (few in rt base) and Non Labored Respirations; Negative Wheezes or Accessory Resp Muscle Use
Cardiac: Regular Rhythm and S1/S2
GI: Soft
Neuro: AO x 3
Psych: Calm
--- NOTE | 2024-10-11 14:27 | HOSPNOTE ---
Referral received. Will follow up with this patients family over this weekend.
[2024-10-11 15:07] VITALS: BP 131/81
--- NOTE | 2024-10-11 15:27 | HOSPNOTE ---
Spoke with Nancie this patients daughter. They will be using [facility] since Nancie works for them.
--- NOTE | 2024-10-11 16:00 | PTCARENOTE ---
Patient eating small amounts meals. Admits to feeling short of breath while eating. O2 sat on RA is 95%. 2L applied for comfort- 100%. Explained to patient and family that risk of aspiration will continue to be there when eating. Dr Kan made
aware. No new orders given.
[2024-10-11] MEDS: D5/0.9% SODIUM CHLORIDE 1000 IV (16:34)
[2024-10-11] MEDS: LOVENOX 40 MG SC (17:24)
[2024-10-11 18:27] LABS: Acetylcholine Receptor Bind Ab 0.1 nmol/L (0.0-0.4)
--- NOTE | 2024-10-11 18:45 | PTCARENOTE ---
Offered patient multiple times to get OOB to the chair. Patient continues to state ' I don't think I can make it there today'. Assisted patient to sit on the side of the bed to eat dinner. Will continue to monitor.
[2024-10-11 19:31] VITALS: BP 129/84
[2024-10-11 23:47] VITALS: BP 149/97
[2024-10-12 03:55] VITALS: BP 126/90
[2024-10-12] MEDS: DECADRON 2 MG IV ×2 (04:45→16:56)
[2024-10-12] MEDS: ULTRAM 25 MG PO (05:34)
[2024-10-12] MEDS: SPIRIVA RESPIMAT 2.5 MCG 2 PUFF INH (07:32)
[2024-10-12] MEDS: ADVAIR HFA 115/21 MCG INHALER 2 PUFF INH ×2 (07:32→18:57)
[2024-10-12 07:40] VITALS: BP 141/93
[2024-10-12] MEDS: ASPIRIN 300 MG RECTAL (09:41)
[2024-10-12] MEDS: FLUSH (NSS) 1 FLUSH IV ×2 (09:42→16:56)
[2024-10-12] MEDS: PROTONIX IV 40 MG IV (09:42)
[2024-10-12] MEDS: NSS (PRESERVATIVE FREE) 10 ML IV (09:42)
[2024-10-12 11:35] VITALS: BP 142/102
--- NOTE | 2024-10-12 12:35 | CM ---
CM following re: discharge planning.
Reviewed pt's chart.
Hospice consult noted. Pt's daughter preferred [facility] because she works for them.
A referral to [facility] made.
D/C plan: return back to [facility] with [facility].
--- NOTE | 2024-10-12 14:22 | W.PN.HOSP.TC ---
Addendum entered and electronically signed by Sammy Kan MD 10/20/24 07:33:
CBW: 75 lbs 6 oz BMI 15.2 underweight range (4/16). Pts weight previous admission listed as 84 lbs 04/14 reflective of a 9 lb (11%) weight loss in 6 months significant. During visit RD able to visualize temporal wasting, orbital area sunken in,
apparent ribs, protrusion of clavicle, fat loss over triceps and calf muscle wasting. With observed muscle and fat wasting, > 10% weight loss in 6 months and < 75% estimated needs > 1 month pt meets AND/ASPEN criteria for severe protein calorie
malnutrition of chronic illness
Addendum entered and electronically signed by Sammy Kan MD 10/20/24 07:30:
Compression Fracture due to osteoporosis
Original Note:
Today's Communication/Plan
-
CW comfort foods
DC on hospice to [facility] in am .
Assessment / Plan
Assessment / Plan
Multifocal new PNA ( RLL, RML, LLL) presumed HAP vs aspiration with increased O2 demand of home O2
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
Known extensive consolidation within RUK consistent with known XRT change
S/P OP PO AB 2 weks ago for PNA
HX Lung CA in remission s/p XRT
- HX home O2 and chr prednisone depedent COPD
- PCT normal but pt with left shift . With normal PCT unclear if aspiration pneumonitis or pneumonia. Appreciate ID input. Antibiotics on hold as felt more aspiration pneumonitis than pneumonia. Remains afebrile and white count remains normal.
- c/w Spiriva INH
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
- Trend POx, Crow and WCC
- c/w chr O2 support to keep Pox > 93
Dysphagia -supposed to be on modified diet but not sure about compliance . SPT recommends NPO and VSE. VSE today shows aspiration to all consistencies including POA and recommend strict n.p.o. and goals of care discussions. VSE report shows
pharyngeal dysphagia. Patient had a prior history of lung cancer s/p radiation. During discussions today with the daughter she has got ongoing dysphagia chronically. She had prior video swallow exam twice and was prescribed modified diet but no
etiology was looked into. She had an MRI of the brain mid last year for malignancy workup. Was negative.
CT of the head no acute intercurrent issues. Ach ab pending - doubt clinically
Patient and family wishes no PEG tube , comfort foods and transition to hospice as comfort is the goal. Consulted CM .
Sinus tachycardia vs Atrial Tachycardia due to acute on chr Hypoxemia
- HR controlled
- c/w Diltiazem XT 120 daily
- c/w baby ASA
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 The T7, T8 and T9 vertebral body fractures
HX Osteoporosis
- stable from dami CT
- c/w Alendronate Qmonth
History of lung cancer s/p radiation treatments. Most recent PET scan was in May 2024 which showed no evidence of recurrent disease
Patient with ongoing dysphagia for few months. She has failed video swallow this time and strict n.p.o. recommended.
She is cachectic with a BMI of 15
She had prior lung cancer for which received radiation. Last PET scan end of last year will without any recurrence of disease.
Discussed with patient and daughter at bedside.
They had a family discussion last evening and patient has decided to go back on the modified diet she was at the senior living and then transition into hospice.
DVT Px: LMWH
DNR
IP TLM
Anticipated Discharge: Within 24 hours
Subjective/Interval History
-
Date of Service: October 12, 2024
Feels okay while on diet. She is taking it slowly.
Denies shortness of breath.
Daughter at bedside-comfort still is the goal.
Objective Data
-
Vital Signs:
Vital Signs
Temp Pulse Resp BP Pulse Ox
97.5 F 91 18 142/102 97
10/12/24 11:35 10/12/24 11:35 10/12/24 11:35 10/12/24 11:35 10/12/24 11:35
I&O
10/11/24 10/12/24 10/13/24
06:59 06:59 06:59
Intake Total 1320 / 1320 1180 / 1180
Balance 1320 / 1320 1180 / 1180
Review of Systems
-
Constitutional: Denies Fever
Respiratory: Denies Cough or Trouble Breathing
Cardiac: Denies Chest Pain
Abdomen/GI: Denies Abdominal Pain, Nausea or Vomiting
Physical Exam
-
Respiratory: Clear to Auscultation and Non Labored Respirations; Negative Accessory Resp Muscle Use
Cardiac: Regular Rhythm and S1/S2
Neuro: AO x 3
Psych: Calm
[2024-10-12 15:45] VITALS: BP 121/72
[2024-10-12] MEDS: LOVENOX 40 MG SC (17:36)
[2024-10-12 23:37] VITALS: BP 154/97
[2024-10-13] MEDS: MELATONIN 3 MG PO (01:55)
[2024-10-13 03:06] VITALS: BP 146/95
[2024-10-13] MEDS: DECADRON 2 MG IV (04:45)
[2024-10-13 07:30] VITALS: BP 154/101
[2024-10-13] MEDS: SPIRIVA RESPIMAT 2.5 MCG 2 PUFF INH (07:49)
[2024-10-13] MEDS: ADVAIR HFA 115/21 MCG INHALER 2 PUFF INH (07:49)
[2024-10-13] MEDS: ASPIRIN 300 MG RECTAL (09:00)
[2024-10-13] MEDS: NSS (PRESERVATIVE FREE) 10 ML IV (09:00)
[2024-10-13] MEDS: PROTONIX IV 40 MG IV (09:00)
--- NOTE | 2024-10-13 09:54 | CM ---
Addendum entered by Oleg White 10/13/24 11:21:
Spoke w/ Ernestina and Nancie conference call. Per Nancie, [facility] will sign on tomorrow
Patient will still d/c today, Ernestina prefers sooner than later for patient to return to avoid multiple admissions
Transport scheduled for 12:30 pm
Original Note:
Chart reviewed. Patient is a LTC resident at [facility].
Patient will d/c today back to [facility]/ [facility].
[facility] DNR on chart to be signed, hospitalist aware
Patient will d/c on O2, will need ambulance transport, forms on chart
CM spoke w/ Nancie, patient's daughter, confirming d/c today and requesting transport to be as early as possible. Nancie works for [facility] and trying to get a nurse to see patient today at SNF.
Spoke w/ Ernestina/Jolene Parker, agreeable to plan
IMM verbally reviewed, copy on chart
[facility]
Report: [phone]

[facility]

Plan: Return to [facility]/ [facility]
[2024-10-13] MEDS: MORPHINE SULFATE 1 MG IV (10:07)
--- NOTE | 2024-10-13 11:37 | W.PN.ID1 ---
Date of Service
Date of Service: October 13, 2024
Today's Communication
Sign off
Assessment / Plan
Tachycardia
Pulmonary infiltrates
Normal white count with left shift
- steroid component?
Transaminitis
Normal procalcitonin
Profound cachexia
Aspiration Syndrome
Hx Lung cancer
COPD
Chronic respiratory insufficiency
Atrial tachycardia
Hyperlipidemia
Osteoporosis
Recommendations:
Patient for discharge today on hospice.
Nothing further to add from a Infectious Diseases standpoint.
Will see again at your request.
����������������������������������������������������������
Chief Complaint
-: Pneumonia
Subjective / Review of Systems
Review of Systems: No Fever and No Chills
Vital Signs / Physical Exam
Vital Signs
Vital Signs
Temp Pulse Resp BP Pulse Ox
97.7 F 109 16 154/101 96
10/13/24 07:30 10/13/24 07:55 10/13/24 07:55 10/13/24 07:30 10/13/24 07:55
Physical Exam
Constitutional: No Acute Distress, Comfortable, Chronically Ill and Cachetic
Pulmonary: Non Labored
Neurological: Awake and Alert
Psychological: Calm
Objective Data
Lab Data
Lab Results
10/09/24 07:49
10/10/24 06:49
Estimated Creat Clear 35 ml/min 10/10/24 06:49
Total Bilirubin 0.6 mg/dl (0.2-1.3) 10/08/24 06:31
AST 87 U/L (14-36) H 10/08/24 06:31
ALT 88 U/L (0-35) H 10/08/24 06:31
Alkaline Phosphatase 342 U/L (38-126) H 10/08/24 06:31
Most recent labs reviewed.
Micro Results:
10/08/24 00:38 MRSA Screen - Final
Nose No Methicillin Resistant Staphylococcus aureus isolated.
10/08/24
06:31
Procalcitonin 0.06
Imaging:
10/07/24 CT chest (PE study): No filling defects to suggest pulmonary embolism. Central airways are patent. Consolidation within the superior right lower lobe consistent with known postradiation changes. There is extensive new consolidative
opacity with surrounding groundglass opacities in the anterior right lower lobe and right middle lobe as well as to a lesser extent the left lower lobe which likely represent multifocal pneumonia, less likely edema/atelectasis. Severe biapical
scarring is noted and unchanged. Please see full dictation for additional detail. Film personally viewed.
09/05/2024 CXR: Opacity projecting over the right mid/upper lung. Mild biapical pleural-parenchymal scarring. There is slight tenting of the right hemidiaphragm. No pleural effusion or pneumothorax. Please see full dictation for additional detail.
--- NOTE | 2024-10-13 12:03 | W.PN.HOSP.TC ---
Addendum entered and electronically signed by John Tejada MD 10/14/24 16:43:
[id number]
Original Note:
Today's Communication/Plan
-
dc on home hospice
Assessment / Plan
Assessment / Plan
Multifocal new PNA ( RLL, RML, LLL) presumed HAP vs aspiration with increased O2 demand of home O2
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
Known extensive consolidation within RUK consistent with known XRT change
S/P OP PO AB 2 weks ago for PNA
HX Lung CA in remission s/p XRT
- HX home O2 and chr prednisone depedent COPD
- PCT normal but pt with left shift . With normal PCT unclear if aspiration pneumonitis or pneumonia. Appreciate ID input. Antibiotics on hold as felt more aspiration pneumonitis than pneumonia. Remains afebrile and white count remains normal.
- c/w Spiriva INH
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
- Trend POx, Crow and WCC
- c/w chr O2 support to keep Pox > 93
Dysphagia -supposed to be on modified diet but not sure about compliance . SPT recommends NPO and VSE. VSE today shows aspiration to all consistencies including POA and recommend strict n.p.o. and goals of care discussions. VSE report shows
pharyngeal dysphagia. Patient had a prior history of lung cancer s/p radiation. During discussions today with the daughter she has got ongoing dysphagia chronically. She had prior video swallow exam twice and was prescribed modified diet but no
etiology was looked into. She had an MRI of the brain mid last year for malignancy workup. Was negative.
CT of the head no acute intercurrent issues. Ach ab pending - doubt clinically
Patient and family wishes no PEG tube , comfort foods and transition to hospice as comfort is the goal. Consulted CM .
Sinus tachycardia vs Atrial Tachycardia due to acute on chr Hypoxemia
- HR controlled
- c/w Diltiazem XT 120 daily
- c/w baby ASA
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 The T7, T8 and T9 vertebral body fractures
HX Osteoporosis
- stable from dami CT
- c/w Alendronate Qmonth
History of lung cancer s/p radiation treatments. Most recent PET scan was in May 2024 which showed no evidence of recurrent disease
Patient with ongoing dysphagia for few months. She has failed video swallow this time and strict n.p.o. recommended.
She is cachectic with a BMI of 15
She had prior lung cancer for which received radiation. Last PET scan end of last year will without any recurrence of disease.
Discussed with patient and daughter at bedside.
They had a family discussion last evening and patient has decided to go back [facility] and then transition into hospice.
DVT Px: LMWH
DNR
IP TLM
DC to Home Hospice
Anticipated Discharge: Today
Subjective/Interval History
-
Date of Service: October 13, 2024
No acute events overnight
Objective Data
-
Vital Signs:
Vital Signs
Temp Pulse Resp BP Pulse Ox
97.7 F 109 16 154/101 96
10/13/24 07:30 10/13/24 07:55 10/13/24 07:55 10/13/24 07:30 10/13/24 07:55
I&O
10/12/24 10/13/24 10/14/24
06:59 06:59 06:59
Intake Total 1180 / 1180 480 / 480
Balance 1180 / 1180 480 / 480
Review of Systems
-
History Source: Patient
All other systems: Not reviewed unless documented
Physical Exam
-
Respiratory: Clear to Auscultation and Non Labored Respirations; Negative Accessory Resp Muscle Use
Cardiac: Regular Rhythm and S1/S2
Neuro: AO x 3
Psych: Calm
Data Reviewed
-
CT Scan: Report Reviewed by me
Labs: Labs Reviewed by me
--- NOTE | 2024-10-13 12:10 | W.DS.TRANS ---
DC Summary - Volumetric Weigher
-
Discharge Instructions:
Discharge Diagnosis/Procedures Multifocal new PNA ( RLL, RML, LLL) presumed
HAP vs aspiration with increased O2 demand of
home O2
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
Known extensive consolidation within RUK
consistent with known XRT change
S/P OP PO AB 2 weks ago for PNA
HX Lung CA in remission s/p XRT
Activity As tolerated
Instructions:
Stand-Alone Forms:
Changes to Home Medications: No
Discharge Medications:
DC Medications w/original date entered in [employer]
alendronate 70 mg tablet 70 mg PO MO prevent osteoporosis 11/12/16
tramadol 50 mg tablet 25 mg PO DAILYPRN PRN moderate pain 11/12/16
acetaminophen 325 mg tablet 650 mg PO Q4HPRN PRN mild pain/fever>100.4 10/07/24
albuterol sulfate 90 mcg/actuation aerosol inhaler 2 puff inhalation R Q4HPRN PRN sob 10/07/24
aluminum-mag hydroxide-simethicone 200 mg-200 mg-20 mg/5 mL oral susp 10 ml PO Q6HPRN PRN indigestion 10/07/24
aspirin 81 mg tablet,delayed release 81 mg PO DAILY dvt prophylaxis 10/07/24
bisacodyl 10 mg rectal suppository 10 mg MS DAILYPRN PRN 3 days no bm, mom ineffective 10/07/24
cholecalciferol (vitamin D3) 25 mcg (1,000 unit) tablet (Vitamin D3) 25 mcg PO DAILY Supplement 10/07/24
fluticasone 250 mcg-salmeterol 50 mcg/dose blistr powdr for inhalation (Advair Diskus) 1 inh inhalation R BID copd 10/07/24
lidocaine 4 % topical cream 1 applic topical TIDPRN PRN lower back 10/07/24
magnesium hydroxide 400 mg/5 mL oral suspension (Milk of Magnesia) 30 ml PO HSPRN PRN constipation 10/07/24
melatonin 3 mg tablet 3 mg PO HS Sleep 10/07/24
mirtazapine 7.5 mg tablet 7.5 mg PO HS Depression 10/07/24
omeprazole magnesium 20 mg tablet,delayed release (Prilosec OTC) 20 mg PO DAILY ulcer prophylaxis 10/07/24
prednisone 10 mg tablet 30 mg PO DAILY Lung/Breathing Issues 10/07/24
pregabalin 50 mg capsule 50 mg PO BID 10/07/24
tiotropium bromide 2.5 mcg/actuation mist for inhalation (Spiriva Respimat) 2 inh inhalation R DAILY Lung/Breathing Issues 10/07/24
Home Medication Changes
can dc with same home meds and dc to home hospice
Pending Results: Yes
== END 2024-10-13 14:08 | disposition hospice, inpatient (51) | DRG 177 ==
LOC: 4 EAST ACU 22:16
PROVIDERS: Internal Medicine; ADMITTING PHYSICIAN Internal Medicine; ATTENDING PHYSICIAN Internal Medicine; EMERGENCY PHYSICIAN Emergency Medicine; FAMILY PHYSICIAN Internal Medicine Geriatric Medicine; OTHER PHYSICIAN Internal Medicine Infectious Disease
DX: J69.0 Pneumonitis due to inhalation of food and vomit (principal); E43 Unspecified severe protein-calorie malnutrition; I47.19 Other supraventricular tachycardia; J44.0 Chronic obstructive pulmonary disease with (acute) lower respiratory infection; Z68.1 Body mass index [BMI] 19.9 or less, adult; J96.11 Chronic respiratory failure with hypoxia; M80.08XA Age-related osteoporosis with current pathological fracture, vertebra(e), initial encounter for fracture; R64 Cachexia; Z51.5 Encounter for palliative care; Z66 Do not resuscitate; J18.9 Pneumonia, unspecified organism; E78.00 Pure hypercholesterolemia, unspecified; R13.19 Other dysphagia; Z88.0 Allergy status to penicillin; Z79.82 Long term (current) use of aspirin; Z79.899 Other long term (current) drug therapy; Z79.52 Long term (current) use of systemic steroids; Z92.3 Personal history of irradiation; Z85.118 Personal history of other malignant neoplasm of bronchus and lung; Z99.81 Dependence on supplemental oxygen
CPT/HCPCS: 70450; 71275; 74230; 80048; 80053; 84145; 84439; 84443; 85025; 85027; 86041; 87070; 92526; 92610; 92611; 93005; 94640; 96365; 96375; 97163; 97530; 99285; J3480; Q9967